=== PATIENT | female | born 1960 | race Caucasian/White ===

== ENCOUNTER 2019-05-08 21:42 | Inpatient (IN) | payer SELFPAY ==
--- OUTSIDE RECORDS SUMMARY | 2019-05-08 21:44 | XMS REPORT ---
:1960 Author Organization eClinicalWorks Care Team Providers Name Role Phone Errol Baires Provider Role Unavailable Allergies No Known Allergies Problems Problem Type Condition Code Onset Dates Condition Status Assessment Closed fracture of proximal end of S42.201A Active right humerus, unspecified fracture morphology, initial encounter Problem Mixed hyperlipidemia E78.2 Active Problem Paroxysmal supraventricular I47.1 Active tachycardia Problem H/O: CVA (cerebrovascular Z86.73 Active accident) Problem Adult BMI 39.0-39.9 kg/sq m Z68.39 Active Problem Gastroesophageal reflux disease K21.9 Active without esophagitis Problem Prediabetes R73.03 Active Problem Seasonal and perennial allergic J30.9 Active rhinitis Problem Migraine without aura, not G43.009 Active intractable, without status migrainosus Medications No Known Medications Results No Known Results Summary Purpose eClinicalWorks Submission
[2019-05-08] MEDS ORDERED: AZITHROMYCIN 500 MG INJ IVPB ONE (22:17)
[2019-05-08] MEDS ORDERED: NA CHLORIDE 0.9% 250 ML ONE (22:17)
[2019-05-08] MEDS ORDERED: ALBUTEROL 2.5 MG/3 ML NEB SOL ONE (22:17)
[2019-05-08] MEDS ORDERED: METHYLPREDNISOLONE 125 MG INJ ONE (22:17)
[2019-05-08] MEDS ORDERED: IPRATROPIUM BROM 0.5MG/2.5ML ONE (22:17)
[2019-05-08] MEDS ORDERED: CEFTRIAXONE/SWI 1gm 2 GM/20 ML SYR ONE (22:18)
--- NOTE | 2019-05-08 22:31 | ER ---
Nurse's Notes [facility] Name: Antonella Hwang Age: 58 yrs Sex: Female : 1960 Arrival Date: 05/08/2019 Time: 21:44 Bed 30 Private MD: Diagnosis: Dyspnea;Chronic obstructive pulmonary disease with (acute) exacerbation;Hypoxemia Presentation: 05/08 21:50 Presenting complaint: Patient states: that 2 weeks ago she had the flu but got better. fc Then today around 1700 she started to have cough with yellow sputum and has sinus congestion. Daughter checked her sats and pt was 88% on roomair. Transition of care: patient was not received from another setting of care. Onset of symptoms was May 08, 2019 at 17:00. Risk Assessment: Do you want to hurt yourself or someone else? Patient reports no desire to harm self or others. Initial Sepsis Screen: Does the patient meet any 2 criteria? No. Patient's initial sepsis screen is negative. Does the patient have a suspected source of infection? No. Patient's initial sepsis screen is negative. Care prior to arrival: Medication(s) given: Albuterol Neb x 1, at 2100. 21:50 Method Of Arrival: Ambulatory 21:50 Acuity: AFTAB 3 fc Historical: - Allergies: 22:07 HYDROCODONE; fc - Home Meds: 22:07 aspirin 81 mg Oral chew 1 tab once daily [Active]; metoprolol tartrate 50 mg Oral tab 1 fc tab 2 times per day [Active]; simvastatin 80 mg Oral tab nightly [Active]; - PMHx: 22:07 Anxiety; GERD; CVA; High Cholesterol; SVT; fc - PSHx: 22:07 ; fc - Immunization history:: Last tetanus immunization: up to date Flu vaccine is not up to date. - Social history:: Smoking status: Patient uses tobacco products, Vaps, Patient uses alcohol, occasionally. - Ebola Screening: : Patient negative for fever greater than or equal to 101.5 degrees Fahrenheit, and additional compatible Ebola Virus Disease symptoms Patient denies exposure to infectious person Patient denies travel to an Ebola-affected area in the 21 days before illness onset. - Family history:: not pertinent. Screenin:50 Abuse screen: Denies threats or abuse. Nutritional screening: No deficits noted. fc Tuberculosis screening: No symptoms or risk factors identified. Fall Risk None identified. Assessment: 22:51 General: Appears in no apparent distress. comfortable, Behavior is calm, cooperative, aj1 appropriate for age. Pain: Denies pain. Neuro: Level of Consciousness is awake, alert, obeys commands, Oriented to person, place, time, situation. Cardiovascular: Heart tones S1 S2 present Patient's skin is warm and dry. Rhythm is sinus rhythm. Respiratory: Reports shortness of breath at rest cough that is productive, Airway is patent Respiratory effort is even, unlabored, Respiratory pattern is regular, symmetrical, Breath sounds with wheezes bilaterally. the patient has moderate shortness of breath. 22:51 GI: No signs and/or symptoms were reported involving the gastrointestinal system. : aj1 No signs and/or symptoms were reported regarding the genitourinary system. EENT: No signs and/or symptoms were reported regarding the EENT system. Derm: No signs and/or symptoms reported regarding the dermatologic system. Skin is pink, warm \T\ dry. normal. Musculoskeletal: No signs and/or symptoms reported regarding the musculoskeletal system. Circulation, motion, and sensation intact. 23:55 Reassessment: Patient appears in no apparent distress at this time. No changes from aj1 previously documented assessment. Patient and/or family updated on plan of care and expected duration. Pain level reassessed. Patient is alert, oriented x 3, equal unlabored respirations, skin warm/dry/pink. 05/09 01:04 Reassessment: Patient appears in no apparent distress at this time. No changes from aj1 previously documented assessment. Patient and/or family updated on plan of care and expected duration. Pain level reassessed. Patient is alert, oriented x 3, equal unlabored respirations, skin warm/dry/pink. Vital Signs: 05/08 21:50 BP 140 / 92; Pulse 90; Resp 20; Temp 98.3(O); Pulse Ox 83% on R/A; Weight 95.25 kg (R); fc Height 5 ft. 7 in. (170.18 cm) (R); Pain 07/28; 21:55 Pulse Ox 90% on 3 lpm NC; fc 22:45 BP 120 / 69; Pulse 86; Resp 18; Pulse Ox 97% on 4 lpm NC; aj1 23:45 BP 114 / 73; Pulse 86; Resp 28; Pulse Ox 95% on 4 lpm NC; aj1 05/09 00:45 BP 116 / 72; Pulse 79; Resp 24; Pulse Ox 93% on 4 lpm NC; aj1 05/08 21:50 Body Mass Index 32.89 (95.25 kg, 170.18 cm) ED Course: 05/08 21:44 Patient arrived in ED. cl3 21:50 Arm band placed on Patient placed in an exam room, on a stretcher, on oxygen. fc 21:50 Patient has correct armband on for positive identification. Placed in gown. Bed in low fc position. Call light in reach. Side rails up X 1. threat monitoring analyst on. Pulse ox on. NIBP on. 21:50 No provider procedures requiring assistance completed. fc 21:53 Jono Sue MD is Attending Physician. sandy 21:57 Leonor Glez RN is Primary Nurse. aj1 22:03 Triage completed. fc 22:15 Inserted saline lock: 20 gauge in right antecubital area, using aseptic technique. aj1 Blood collected. 22:15 Initial lab(s) drawn, by tn, sent to lab. First set of blood cultures drawn by me. aj1 22:29 Sandra Beverly MD is Hospitalizing Provider. sandy 22:31 Inserted saline lock: 20 gauge in right wrist, using aseptic technique. aj1 22:31 Second set of blood cultures drawn by me. aj1 22:48 XRAY Chest (1 view) In Process Unspecified. EDMS 05/09 01:07 Patient admitted, IV remains in place. aj1 Administered Medications: 05/08 22:45 Drug: Albuterol - atroVENT (3:1) (2.5 mg - 0.5 mg) 3 ml Route: Nebulizer; aj1 05/09 01:09 Follow up: Response: No adverse reaction aj1 05/08 22:45 Drug: SOLU-Medrol 125 mg Route: IVP; Site: right wrist; aj1 05/09 01:10 Follow up: Response: No adverse reaction aj1 05/08 22:47 Drug: Rocephin 2 grams Route: IV; Rate: per protocol; Site: right forearm; aj1 22:50 Follow up: IV Status: Completed infusion; IV Intake: 10ml aj1 22:47 Drug: Zithromax 500 mg Route: IVPB; Infused Over: 1 hrs; Site: right forearm; aj1 23:50 Follow up: IV Status: Completed infusion; IV Intake: 250ml aj1 Intake: 22:50 IV: 10ml; Total: 10ml. aj1 23:50 IV: 250ml; Total: 260ml. aj1 Outcome: 22:30 Decision to Hospitalize by Provider. sandy 05/09 01:07 Admitted to Tele accompanied by tech, via wheelchair, with oxygen, with chart, Report aj1 called to AURELIO Peña Condition: stable Discharge instructions given to patient, family, Instructed on the need for admit, Demonstrated understanding of instructions. 01:10 Patient left the ED. aj1 Signatures: Dispatcher [employer] Leonor Virgen RN RN aj1 Jono Sue MD MD cha Chretien, Felicia, RN RN fc Lewis, Charde cl3 Corrections: (The following items were deleted from the chart) 05/08 22:09 21:50 BP 140 / 92; Pulse 90bpm; Resp 20bpm; Pulse Ox 83% RA; 95.25 kg Reported; Height fc 5 ft. 7 in. Reported; BMI: 32.8; Pain 2/10; fc 05/09 01:02 05/08 22:51 Respiratory: Airway is patent Respiratory effort is even, unlabored, aj1 Respiratory pattern is regular, symmetrical, aj1
--- NOTE | 2019-05-08 22:31 | EDPHYS ---
Physician Documentation [facility] Name: Antonella Hwang Age: 58 yrs Sex: Female : 1960 Arrival Date: 05/08/2019 Time: 21:44 Bed 30 Private MD: ED Physician Jono Sue HPI: 05/08 22:25 This 58 yrs old Female presents to ER via Ambulatory with complaints of sandy Shortness Of Breath. 22:25 The patient has shortness of breath at rest, with light activity. Onset: The sandy symptoms/episode began/occurred 2 day(s) ago. Duration: The symptoms are continuous, and are steadily getting worse. The patient's shortness of breath is aggravated by nothing, is alleviated by nothing. Associated signs and symptoms: The patient has no apparent associated signs or symptoms. Severity of symptoms: At their worst the symptoms were mild moderate in the emergency department the symptoms have resolved. The patient has not experienced similar symptoms in the past. Historical: - Allergies: 22:07 HYDROCODONE; fc - Home Meds: 22:07 aspirin 81 mg Oral chew 1 tab once daily [Active]; metoprolol tartrate 50 mg Oral tab 1 fc tab 2 times per day [Active]; simvastatin 80 mg Oral tab nightly [Active]; - PMHx: 22:07 Anxiety; GERD; CVA; High Cholesterol; SVT; fc - PSHx: 22:07 ; fc - Immunization history:: Last tetanus immunization: up to date Flu vaccine is not up to date. - Social history:: Smoking status: Patient uses tobacco products, Vaps, Patient uses alcohol, occasionally. - Ebola Screening: : Patient negative for fever greater than or equal to 101.5 degrees Fahrenheit, and additional compatible Ebola Virus Disease symptoms Patient denies exposure to infectious person Patient denies travel to an Ebola-affected area in the 21 days before illness onset. - Family history:: not pertinent. ROS: 22:25 Constitutional: Negative for fever, chills, and weight loss, Eyes: Negative for injury, sandy pain, redness, and discharge, ENT: Negative for injury, pain, and discharge, Neck: Negative for injury, pain, and swelling, Cardiovascular: Negative for chest pain, palpitations, and edema, Abdomen/GI: Negative for abdominal pain, nausea, vomiting, diarrhea, and constipation, Back: Negative for injury and pain, : Negative for injury, bleeding, discharge, and swelling, MS/Extremity: Negative for injury and deformity, Skin: Negative for injury, rash, and discoloration, Neuro: Negative for headache, weakness, numbness, tingling, and seizure, Psych: Negative for depression, anxiety, suicide ideation, homicidal ideation, and hallucinations, Allergy/Immunology: Negative for hives, rash, and allergies, Endocrine: Negative for neck swelling, polydipsia, polyuria, polyphagia, and marked weight changes, Hematologic/Lymphatic: Negative for swollen nodes, abnormal bleeding, and unusual bruising. 22:25 Respiratory: Positive for cough, shortness of breath, at rest. wheezing, inspiratory, expiratory. Exam: 22:27 Constitutional: This is a well developed, well nourished patient who is awake, alert, sandy and in no acute distress. Head/Face: Normocephalic, atraumatic. Eyes: Pupils equal round and reactive to light, extra-ocular motions intact. Lids and lashes normal. Conjunctiva and sclera are non-icteric and not injected. Cornea within normal limits. Periorbital areas with no swelling, redness, or edema. ENT: Nares patent. No nasal discharge, no septal abnormalities noted. Tympanic membranes are normal and external auditory canals are clear. Oropharynx with no redness, swelling, or masses, exudates, or evidence of obstruction, uvula midline. Mucous membranes moist. Neck: Trachea midline, no thyromegaly or masses palpated, and no cervical lymphadenopathy. Supple, full range of motion without nuchal rigidity, or vertebral point tenderness. No Meningismus. Chest/axilla: Normal chest wall appearance and motion. Nontender with no deformity. No lesions are appreciated. Cardiovascular: Regular rate and rhythm with a normal S1 and S2. No gallops, murmurs, or rubs. Normal PMI, no JVD. No pulse deficits. Abdomen/GI: Soft, non-tender, with normal bowel sounds. No distension or tympany. No guarding or rebound. No evidence of tenderness throughout. Back: No spinal tenderness. No costovertebral tenderness. Full range of motion. Skin: Warm, dry with normal turgor. Normal color with no rashes, no lesions, and no evidence of cellulitis. MS/ Extremity: Pulses equal, no cyanosis. Neurovascular intact. Full, normal range of motion. Neuro: Awake and alert, GCS 15, oriented to person, place, time, and situation. Cranial nerves II-XII grossly intact. Motor strength 5/5 in all extremities. Sensory grossly intact. Cerebellar exam normal. Normal gait. Psych: Awake, alert, with orientation to person, place and time. Behavior, mood, and affect are within normal limits. 22:27 Respiratory: mild respiratory distress is noted, moderate respiratory distress is noted, Respirations: no acute changes, labored breathing, is not present, Breath sounds: bronchial sounds, that are mild, decreased breath sounds, that are mild, wheezing: expiratory Respiratory rate: 20 Vital Signs: 21:50 BP 140 / 92; Pulse 90; Resp 20; Temp 98.3(O); Pulse Ox 83% on R/A; Weight 95.25 kg (R); fc Height 5 ft. 7 in. (170.18 cm) (R); Pain 2/10; 21:55 Pulse Ox 90% on 3 lpm NC; 22:45 BP 120 / 69; Pulse 86; Resp 18; Pulse Ox 97% on 4 lpm NC; [facility] 23:45 BP 114 / 73; Pulse 86; Resp 28; Pulse Ox 95% on 4 lpm NC; [facility] 05/09 00:45 BP 116 / 72; Pulse 79; Resp 24; Pulse Ox 93% on 4 lpm NC; [facility] 05/08 21:50 Body Mass Index 32.89 (95.25 kg, 170.18 cm) MDM: 05/08 21:53 Patient medically screened. [facility] 22:28 Data reviewed: vital signs, nurses notes, lab test result(s), EKG, radiologic studies, [facility] plain films. 05/08 22:04 Order name: Basic Metabolic Panel [facility] 05/08 22:04 Order name: CBC with Diff; Complete Time: 00:38 [facility] 05/08 22:04 Order name: LFT's [facility] 05/08 22:04 Order name: Magnesium [facility] 05/08 22:04 Order name: NT PRO-BNP [facility] 05/08 22:04 Order name: PT-INR; Complete Time: 00:38 [facility] 05/08 22:04 Order name: Troponin (emerg Dept Use Only) [facility] 05/08 22:04 Order name: Influenza Screen (a \T\ B); Complete Time: 00:38 [facility] 05/08 22:04 Order name: Blood Culture Adult (2) [facility] 05/08 22:04 Order name: Procalcitonin; Complete Time: 00:38 [facility] 05/08 22:04 Order name: Urine Culture [facility] 05/08 22:13 Order name: Lactate [facility] 05/08 22:14 Order name: Lactate aj 05/08 23:36 Order name: CBC with Automated Diff [facility] 05/08 22:04 Order name: XRAY Chest (1 view) [facility] 05/08 23:36 Order name: CBC with Automated Diff [facility] 05/08 23:36 Order name: Comprehensive Metabolic Panel [facility] 05/08 23:36 Order name: Comprehensive Metabolic Panel [facility] 05/08 23:36 Order name: Lactate [facility] 05/08 23:36 Order name: Lactate [facility] 05/08 23:36 Order name: Magnesium [facility] 05/08 23:36 Order name: Magnesium [facility] 05/08 23:36 Order name: Phosphorus [facility] 05/08 23:36 Order name: Phosphorus [facility] 05/08 23:36 Order name: NT PRO-BNP [facility] 05/08 23:36 Order name: NT PRO-BNP [facility] 05/08 23:36 Order name: Troponin I [facility] 05/08 23:36 Order name: Troponin I [facility] 05/08 23:38 Order name: Urinalysis [facility] 05/08 22:04 Order name: EKG; Complete Time: 22:06 [facility] 05/08 22:04 Order name: Cardiac monitoring; Complete Time: 00:11 [facility] 05/08 22:04 Order name: EKG - Nurse/Tech; Complete Time: 00:11 [facility] 05/08 22:04 Order name: IV Saline Lock; Complete Time: 00:11 [facility] 05/08 22:04 Order name: Labs collected and sent; Complete Time: 00:11 [facility] 05/08 22:04 Order name: O2 Per Protocol; Complete Time: 00:12 [facility] 05/08 22:04 Order name: O2 Sat Monitoring; Complete Time: 00:12 [facility] 05/08 23:36 Order name: CONS Physician Consult [facility] 05/08 23:36 Order name: Regular EDMS Administered Medications: 22:45 Drug: Albuterol - atroVENT (3:1) (2.5 mg - 0.5 mg) 3 ml Route: Nebulizer; [facility] 05/09 01:09 Follow up: Response: No adverse reaction [facility] 05/08 22:45 Drug: SOLU-Medrol 125 mg Route: IVP; Site: right wrist; [facility] 05/09 01:10 Follow up: Response: No adverse reaction [facility] 05/08 22:47 Drug: Rocephin 2 grams Route: IV; Rate: per protocol; Site: right forearm; aj 22:50 Follow up: IV Status: Completed infusion; IV Intake: 10ml 22:47 Drug: Zithromax 500 mg Route: IVPB; Infused Over: 1 hrs; Site: right forearm; aj 23:50 Follow up: IV Status: Completed infusion; IV Intake: 250ml [facility] Disposition: 05/08/19 22:30 Hospitalization ordered by Sandra Beverly for Inpatient Admission. Preliminary diagnosis are Dyspnea, Chronic obstructive pulmonary disease with (acute) exacerbation, Hypoxemia. - Bed requested for Telemetry/MedSurg (Inpatient). - Status is Inpatient Admission. [facility] - Condition is Fair. - Problem is new. - Symptoms have improved. UTI on Admission? No Signatures: Dispatcher [employer] EDLeonor Little RN RN [facility] Jono Sue MD MD cha Chretien, Felicia, RN RN Cherise Grigsby RN RN Corrections: (The following items were deleted from the chart) 23:47 22:30 Hospitalization Ordered by Sandra Beverly MD for Inpatient Admission. Preliminary cg diagnosis is Dyspnea; Chronic obstructive pulmonary disease with (acute) exacerbation; Hypoxemia. Bed requested for Telemetry/MedSurg (Inpatient). Status is Inpatient Admission. Condition is Fair. Problem is new. Symptoms have improved. UTI on Admission? No. sandy 23:48 23:47 05/08/2019 22:30 Hospitalization Ordered by Sandra Beverly MD for Inpatient Admission. Preliminary diagnosis is Dyspnea; Chronic obstructive pulmonary disease with (acute) exacerbation; Hypoxemia. Bed requested for Telemetry/MedSurg (Inpatient). Status is Inpatient Admission. Condition is Fair. Problem is new. Symptoms have improved. UTI on Admission? No. cg 05/09 01:10 05/08 23:48 05/08/2019 22:30 Hospitalization Ordered by Sandra Beverly MD for Inpatient aj1 Admission. Preliminary diagnosis is Dyspnea; Chronic obstructive pulmonary disease with (acute) exacerbation; Hypoxemia. Bed requested for Telemetry/MedSurg (Inpatient). Status is Inpatient Admission. Condition is Fair. Problem is new. Symptoms have improved. UTI on Admission? No. cg
[2019-05-08 22:56] LABS: Absolute Lymphocytes (CBC) 3.5 K/uL (0.7-4.9); Hematocrit 40.8 % (36.0-45.0); Lymphocytes % 39.5 % (15.3-44.8); MPV 9.4 fL (7.6-11.3); RBC Red Blood Cell Count 4.53 M/uL (3.86-4.86)
[2019-05-08 22:59] LABS: Protime INR 0.98
[2019-05-08 23:15] LABS: ALT/SGPT 20 U/L (12-78); AST/SGOT 17 U/L (15-37); Albumin 3.5 g/dL (3.4-5.0); Alkaline Phosphatase 72 U/L (45-117); BUN Blood Urea Nitrogen 20 mg/dL (7-18); Bicarbonate 28 mmol/L (21-32); Bilirubin Direct 0.1 mg/dL (0-0.2); Bilirubin Total 0.3 mg/dL (0.2-1.0); Glucose Level 101 mg/dL (74-106); Magnesium 1.9 mg/dL (1.8-2.4); NT PRO-BNP 28 pg/mL (<125); Potassium 3.5 mmol/L (3.5-5.1); Protein, Total 7.9 g/dL (6.4-8.2); Sodium Level 139 mmol/L (136-145); Troponin (Emerg Dept Use Only) < 0.02 ng/mL (0.0-0.045)
[2019-05-08] MEDS ORDERED: ONDANSETRON 4 MG/2 ML VIAL IV PRN (23:32)
[2019-05-08] MEDS ORDERED: ACETAMINOPHEN 500 MG TAB PO PRN (23:32)
[2019-05-09 01:17] VITALS: BMI 38.9
[2019-05-09] MEDS: NA CHLORIDE 0.9% 1,000 ML IV SCH (01:42)
[2019-05-09] MEDS: Levofloxacin500mg IV 500 MG/100 ML BAG IV SCH ×2 (01:43→22:10)
[2019-05-09] MEDS: IPRATROPIUM BROM 0.5MG/2.5ML NEB SCH ×4 (02:00→19:40)
[2019-05-09] MEDS: ALBUTEROL 2.5 MG/3 ML NEB SOL NEB SCH ×4 (02:00→19:40)
[2019-05-09 02:07] LABS: Urine Appearance CLEAR; Urine Bilirubin NEGATIVE (NEG); Urine Blood NEGATIVE (NEG); Urine Color YELLOW; Urine Glucose NEGATIVE (NEG); Urine Protein NEGATIVE (NEG); Urine Urobilinogen 0.2 mg/dL (0.2-1.0); Urine pH 5.5 (5.0-7.0)
[2019-05-09 02:15] LABS: Urine Microscopic Reflex NO UMIC
[2019-05-09] MEDS: METHYLPREDNISOLONE 125 MG INJ IV SCH ×4 (04:02→22:11)
[2019-05-09 04:29] LABS: Basophils % 0.2 % (0-1.3); Hematocrit 40.6 % (36.0-45.0); Lymphocytes % 13.7 % (15.3-44.8); MPV 8.7 fL (7.6-11.3); RBC Red Blood Cell Count 4.43 M/uL (3.86-4.86)
[2019-05-09 04:43] LABS: Albumin 3.4 g/dL (3.4-5.0); Bilirubin Total 0.2 mg/dL (0.2-1.0); Magnesium 1.9 mg/dL (1.8-2.4); Phosphorus 3.3 mg/dL (2.5-4.9); Protein, Total 7.9 g/dL (6.4-8.2)
[2019-05-09] MEDS: ENOXAPARIN 40 MG/0.4 ML SQ SCH (08:03)
--- NOTE | 2019-05-09 08:25 | RAD REPORT ---
EXAM DESCRIPTION: Florencia Single View05/08/2019 10:47 pm CLINICAL HISTORY: Cough COMPARISON: 2017 FINDINGS: Mild prominence of the interstitial lung pattern bilaterally without significant change The heart is normal size IMPRESSION: Mild prominence interstitial pattern bilaterally without significant change presumably c hronic. A mild superimposed process such as pneumonitis/atypical pneumonia could also be present.
--- NOTE | 2019-05-09 11:15 | P.CNS ---
Date of Consult: 05/16/19 Reason for Consult: Shortness of breath Chief Complaint: Shortness of breath History of Present Illness: Patient is 58-year-old very pleasant lady who quit smoking 5 years ago former heavy smoker admitted with acute onset of shortness of breath denies any cough sputum hemoptysis fever or chills no prior history of cardiopulmonary disorders feels fine now denies any chest pain Allergies hydrocodone Allergy (Severe, Verified 11/24/16 22:02) Itching Home Medications: Aspirin 81 mg PO DAILY 11/24/16 Metoprolol Succinate [Toprol Xl] 50 mg PO BID 05/09/19 Simvastatin [Zocor] 1 tab PO BEDTIME 05/09/19 - Past Medical/Surgical History Diabetic: No -: Anxiety -: CVA-2005 -: GERD -: SVT -: HLD -: CS - Family History Father Medical History: Cancer Notes: Liver cancer Mother Medical History: Diabetes Notes: none Brother Medical History: Heart disease, Cancer Notes: Lung cancer Sister Medical History: Cancer Notes: uterine cancer and breast cancer - Social History Smoking Status: Current every day smoker Alcohol use: Yes CD- Drugs: No Caffeine use: No Place of Residence: Home Review of Systems 10-point ROS is otherwise unremarkable Physical Examination Temp Pulse Resp BP Pulse Ox 97.0 F 87 18 106/57 L 95 05/09/19 08:00 05/09/19 08:00 05/09/19 08:00 05/09/19 08:00 05/09/19 08:00 General: Alert, Oriented x3, Cachectic Neck: Supple Respiratory: Clear to auscultation bilaterally Cardiovascular: No edema, Regular rate/rhythm, Normal S1 S2 Gastrointestinal: Normal bowel sounds, Soft and benign Laboratory Data (last 24 hrs) 05/08/19 22:15: Sodium 139, Potassium 3.5, BUN 20 H, Creatinine 0.91, Glucose 101, Magnesium 1.9, Total Bilirubin 0.3, AST 17, ALT 20, Alkaline Phosphatase 72 05/08/19 10:15: PT 11.6, INR 0.98 05/08/19 10:15: WBC 8.9, Hgb 14.1, Hct 40.8, Plt Count 224 - Problems (1) Shortness of breath Current Visit: Yes Status: Acute Plan: Patient is 58 years of age admitted with acute onset of shortness of breath former heavy smoker possibly underlying obstructive airways disease she is currently feeling better labs reviewed unremarkable chest x-ray does show some interstitial changes there is no evidence of sepsis check room air pulse ox repeat chest x-ray PA and lateral including an echocardiogram in Dc antibiotics discharge follow up with me in 1 or 2 weeks BNP is normal
--- NOTE | 2019-05-09 11:57 | EKG ---
Test Date: 2019-05-08 Test Time: 23:56:38 Roll Trucker: BLAINE MEASUREMENT RESULTS: Intervals: Rate: 80 WI: 150 QRSD: 84 QT: 394 QTc: 454 Sikes: P: 69 WI: 150 QRS: 25 T: 19 INTERPRETIVE STATEMENTS: Normal sinus rhythm Nonspecific ST abnormality Abnormal ECG Compared to ECG 11/25/2016 06:45:20 Prolonged QT interval no longer present ST (T wave) deviation still present Electronically Signed On 05-09-19 11:56:38 DIRECTOR WEIGHTS AND MEASURES by Norman Hernandez
--- NOTE | 2019-05-09 14:24 | RAD REPORT ---
EXAM DESCRIPTION: Florencia Pa And Lat (2 Views)05/09/2019 2:17 pm CLINICAL HISTORY: Shortness of breath COMPARISON: May 08, 2019 FINDINGS: Reticular lung opacities appear mildly more prominent in the lung bases. Additional bilateral interstitial opacities appear unchanged The heart is normal size IMPRESSION: Appears to be mild progression in reticular opacities within the lung bases which may in dicate pneumonitis or atypical pneumonia
--- NOTE | 2019-05-09 15:58 | P.HP ---
Certification for Inpatient Patient admitted to: Inpatient With expected LOS: >2 Midnights Patient will require the following post-hospital care: None Practitioner: I am a practitioner with admitting privileges, knowledge of patient current condition, hospital course, and medical plan of care. Services: Services provided to patient in accordance with Admission requirements found in Title 42 Section 412.3 of the Code of Federal Regulations Patient History Date of Service: 05/08/19 Reason for admission: Shortness of breath History of Present Illness: patient is a 58-year-old female who comes into the hospital with difficulty breathing. Patient has been having some difficulty with respirations for the last few years. She quit smoking about 5 years ago. At that time she was seen in the hospital and it was felt she may need oxygen. However her oxygen saturations recovered and she did not need to go home with oxygen. Patient a couple weeks ago got the flu. Her grandson had the flu and she developed similar symptoms. She did recover but over the last couple of days she has been short of breath. She has been doing some woodworking paining around the house which she grew up doing. This may have exacerbated her respiratory status. She will be admitted to the hospital for a COPD exacerbation. Allergies hydrocodone Allergy (Severe, Verified 11/24/16 22:02) Itching Home Medications: Aspirin 81 mg PO DAILY 11/24/16 Metoprolol Succinate [Toprol Xl] 50 mg PO BID 05/09/19 Simvastatin [Zocor] 1 tab PO BEDTIME 05/09/19 - Past Medical/Surgical History Has patient received pneumonia vaccine in the past: No Diabetic: No -: Anxiety -: CVA-2004 -: GERD -: SVT -: HLD -: CS - Family History Father Medical History: Cancer Notes: Liver cancer Mother Medical History: Diabetes Notes: none Brother Medical History: Heart disease, Cancer Notes: Lung cancer Sister Medical History: Cancer Notes: uterine cancer and breast cancer - Social History Smoking Status: Former smoker Alcohol use: Yes CD- Drugs: No Caffeine use: No Place of Residence: Home Review of Systems 10-point ROS is otherwise unremarkable Physical Examination - Vital Signs Temperature: 97.1 F Blood Pressure: 110/61 Pulse: 79 Respirations: 18 Pulse Ox (%): 93 - Physical Exam General: Alert, In no apparent distress, Oriented x3 HEENT: Atraumatic, PERRLA, Mucous membr. moist/pink, EOMI, Sclerae nonicteric Neck: Supple, 2+ carotid pulse no bruit, No LAD, Without JVD or thyroid abnormality Respiratory: Diminished, Expiratory wheezes Cardiovascular: Regular rate/rhythm, Normal S1 S2, No murmurs Gastrointestinal: Normal bowel sounds, Soft and benign, Non-distended, No tenderness Musculoskeletal: No clubbing, No swelling, No tenderness Integumentary: No rashes Neurological: Normal gait, Normal speech, Normal strength at 5/5 x4 extr, Normal tone, Sensation intact, Cranial nerves 3-12 intact, Normal affect Lymphatics: No axilla or inguinal lymphadenopathy - Studies Laboratory Data (last 24 hrs) 05/08/19 22:15: Sodium 139, Potassium 3.5, BUN 20 H, Creatinine 0.91, Glucose 101, Magnesium 1.9, Total Bilirubin 0.3, AST 17, ALT 20, Alkaline Phosphatase 72 05/08/19 10:15: PT 11.6, INR 0.98 05/08/19 10:15: WBC 8.9, Hgb 14.1, Hct 40.8, Plt Count 224 Microbiology Data (last 24 hrs): 05/08/19 23:15 Nasopharnyx Influenza Type A Antigen Screen - Final 05/08/19 23:15 Nasopharnyx Influenza Type B Antigen Screen - Final Assessment & Plan - Problems (Diagnosis) (1) H/O supraventricular tachycardia Current Visit: Yes Status: Acute (2) COPD with exacerbation Current Visit: Yes Status: Acute (3) Shortness of breath Current Visit: Yes Status: Acute (4) Hypoxemia Current Visit: Yes Status: Acute - Plan Plan: 1. Continue with IV antibiotics 2. Check RA O2 sats 3. Repeat chest x-ray in AM 4. Will order CT scan of the chest 5. Counselled re: meds to use for COPD 6. Continue with nebs as needed 7. O2 per protocol 8. Continue with gentle hydration 9. Repeat labs including CBC and renal function in a.m. 10. Outpt follow-up with Pulmonary 11. GI and DVT prophylaxis Discharge Plan: Home Plan to discharge in: Greater than 2 days - Advance Directives Does patient have a Living Will: No Does patient have a Durable POA for Healthcare: No - Code Status/Comfort Care Code Status Assessed: Yes Code Status: Full Code Critical Care: No Time Spent Managing PTS Care (In Minutes): 45
[2019-05-09] MEDS ORDERED: ATORVASTATIN 40 MG TAB PO SCH (21:00)
[2019-05-09] MEDS ORDERED: SIMVASTATIN PO SCH (21:00)
[2019-05-09] MEDS: METOPROLOL XL 50 MG TAB PO SCH (22:10)
[2019-05-10] MEDS: IPRATROPIUM BROM 0.5MG/2.5ML NEB SCH ×2 (01:05→07:21)
[2019-05-10] MEDS: ALBUTEROL 2.5 MG/3 ML NEB SOL NEB SCH ×2 (01:05→07:21)
[2019-05-10] MEDS: METHYLPREDNISOLONE 125 MG INJ IV SCH ×2 (05:45→09:06)
[2019-05-10] MEDS: NA CHLORIDE 0.9% 1,000 ML IV SCH (05:50)
[2019-05-10 08:58] VITALS: O2SAT 90
[2019-05-10] MEDS ORDERED: ASPIRIN 81 MG CHEWABLE TABLET PO SCH (09:00)
[2019-05-10] MEDS: ENOXAPARIN 40 MG/0.4 ML SQ SCH (09:04)
[2019-05-10] MEDS: METOPROLOL XL 50 MG TAB PO SCH (09:04)
--- NOTE | 2019-05-10 10:01 | P.PN ---
Subjective Date of Service: 05/09/19 Patient is clinically improving. Will get her off of oxygen and see how she does on room air today. Pulmonary consultation pending as well. Review of Systems 10-point ROS is otherwise unremarkable Physical Examination - Vital Signs Temperature: 98.0 F Blood Pressure: 135/64 Pulse: 82 Respirations: 18 Pulse Ox (%): 92 - Physical Exam General: Alert, In no apparent distress, Oriented x3 Respiratory: Normal air movement, Expiratory wheezes Cardiovascular: Regular rate/rhythm, Normal S1 S2 Gastrointestinal: Normal bowel sounds, Soft and benign, Non-distended, No tenderness Musculoskeletal: No clubbing, No swelling, No tenderness Neurological: Normal speech, Normal strength at 5/5 x4 extr, Normal tone, Sensation intact, Cranial nerves 3-12 intact, Normal affect - Studies Medications List Reviewed: Yes Assessment & Plan - Problems (Diagnosis) (1) Shortness of breath Current Visit: Yes Status: Acute (2) COPD with exacerbation Current Visit: Yes Status: Acute (3) H/O supraventricular tachycardia Current Visit: Yes Status: Acute (4) Hypoxemia Current Visit: Yes Status: Acute - Plan Plan: Continue with plan of care as mentioned below 1. Continue with IV antibiotics 2. Check RA O2 sats 3. Repeat chest x-ray in AM 4. Arrange for home meds-patient is uninsured so will have to make sure these are affordable 5. Counselled re: meds to use for COPD 6. Continue with nebs as needed 7. O2 per protocol 8. Continue with gentle hydration 9. Repeat labs including CBC and renal function in a.m. 10. Outpt follow-up with Pulmonary 11. GI and DVT prophylaxis Discharge Plan: Home Plan to discharge in: 24 Hours - Advance Directives Does patient have a Living Will: No Does patient have a Durable POA for Healthcare: No - Code Status/Comfort Care Code Status: Full Code Critical Care: No Time Spent Managing PTS Care (In Minutes): 30
--- NOTE | 2019-05-10 10:03 | P.DS ---
Discharge Date: 05/10/19 Disposition: ROUTINE DISCHARGE Discharge Condition: GOOD Reason for Admission: Shortness of breath Consultations: Pulmonary - Problems (1) Shortness of breath Current Visit: Yes Status: Acute (2) COPD with exacerbation Current Visit: Yes Status: Acute (3) H/O supraventricular tachycardia Current Visit: Yes Status: Acute (4) Hypoxemia Current Visit: Yes Status: Acute Brief History of Present Illness: patient is a 58-year-old female who comes into the hospital with difficulty breathing. Patient has been having some difficulty with respirations for the last few years. She quit smoking about 5 years ago. At that time she was seen in the hospital and it was felt she may need oxygen. However her oxygen saturations recovered and she did not need to go home with oxygen. Patient a couple weeks ago got the flu. Her grandson had the flu and she developed similar symptoms. She did recover but over the last couple of days she has been short of breath. She has been doing some woodworking paining around the house which she grew up doing. This may have exacerbated her respiratory status. She will be admitted to the hospital for a COPD exacerbation. Hospital Course: Patient is done well. On room air oxygen her O2 sats are 95%. Patient is stable for discharge on steroids and antibiotic therapy. Vital Signs/Physical Exam: Temp Pulse Resp BP Pulse Ox 98.0 F 82 18 135/64 92 05/10/19 10:01 05/10/19 10:01 05/10/19 10:01 05/10/19 10:01 05/10/19 10:01 General: Alert, In no apparent distress, Oriented x3 Laboratory Data at Discharge: WBC 7.2 K/uL (4.3-10.9) D 05/09/19 04:16 Hgb 13.5 g/dL (12.0-15.0) 05/09/19 04:16 Hct 40.6 % (36.0-45.0) 05/09/19 04:16 Plt Count 212 K/uL (152-406) 05/09/19 04:16 PT 11.6 SECONDS (9.5-12.5) 05/08/19 10:15 INR 0.98 05/08/19 10:15 Sodium 139 mmol/L (136-145) 05/09/19 04:16 Potassium 4.0 mmol/L (3.5-5.1) 05/09/19 04:16 BUN 19 mg/dL (7-18) H 05/09/19 04:16 Creatinine 1.12 mg/dL (0.55-1.3) 05/09/19 04:16 Glucose 160 mg/dL (74-106) H 05/09/19 04:16 Phosphorus 3.3 mg/dL (2.5-4.9) 05/09/19 04:16 Magnesium 1.9 mg/dL (1.8-2.4) 05/09/19 04:16 Total Bilirubin 0.2 mg/dL (0.2-1.0) 05/09/19 04:16 AST 15 U/L (15-37) 05/09/19 04:16 ALT 18 U/L (12-78) 05/09/19 04:16 Alkaline Phosphatase 65 U/L (45-117) 05/09/19 04:16 Troponin I < 0.02 ng/mL (0.0-0.045) 05/09/19 04:16 Home Medications: Aspirin 81 mg PO DAILY 11/24/16 Metoprolol Succinate [Toprol Xl] 50 mg PO BID 05/09/19 Simvastatin [Zocor] 1 tab PO BEDTIME 05/09/19 Patient Discharge Instructions: OK TO DC IV AND DC HOME. FOLLOW-UP WITH PRIMARY CARE PROVIDER IN 1-2 WEEKS. FOLLOW-UP WITH CARDIOLOGY IN 1-2 WEEKS. RETURN TO THE ER IF SYMPTOMS WORSENS. CALL or TEXT DR. TOWNSEND AT [phone] IF ANY QUESTIONS REGARDING HOSPITAL STAY. PLEASE CALL THE FLOOR AT [phone] IF ANY MEDICATION OR NURSING QUESTIONS. Diet: Regular Activity: Fall precautions Time spent managing pt's care (in minutes): 30
[2019-05-10 12:28] VITALS: BP 124/61; TEMP 97.7
--- NOTE | 2019-05-12 08:08 | ECHO ---
HEIGHT: 5 ft 7 in WEIGHT: 248 lb 11.2 oz DATE OF STUDY: 05/09/[address]: Brigido Wright MD 2-DIMENSIONAL: YES M.MODE: YES DOPPLER: YES COLOR FLOW: YES TDS: NO PORTABLE: NO DEFINITY: NO BUBBLE STUDY: NO DIAGNOSIS: SHORTNESS OF BREATH CARDIAC HISTORY: CATHERIZATION: NO SURGERY: NO PROSTHETIC VALVE: NO PACEMAKER: NO MEASUREMENTS (cm) DIASTOLIC (NORMALS) SYSTOLIC (NORMALS) IVSd 1.0 (0.6-1.2) LA Diam 2.8 (1.9-4.0) LVEF 66% LVIDd 4.5 (3.5-5.7) LVIDs 2.9 (2.0-3.5) %FS 36% LVPWd 1.0 (0.6-1.2) Ao Diam 2.2 (2.0-3.7) 2 DIMENSIONAL ASSESSMENT: RIGHT ATRIUM: NORMAL LEFT ATRIUM: NORMAL RIGHT VENTRICLE: NORMAL LEFT VENTRICLE: NORMAL TRICUSPID VALVE: NORMAL MITRAL VALVE: NORMAL PULMONIC VALVE: NORMAL AORTIC VALVE: NORMAL PERICARDIAL EFFUSION: NONE AORTIC ROOT: NORMAL LEFT VENTRICULAR WALL MOTION: NORMAL DOPPLER/COLOR FLOW: TRACE MITRAL AND TRICUSPID REGURGITATION. COMMENTS: NORMAL 2D ECHOCARDIOGRAM. TRACE MITRAL AND TRICUSPID REGURGITATION. NORMAL LEFT VENTRICULAR SIZE AND FUNCTION. NO WALL MOTION ABNORMALITY. NO EFFUSION. TECHNOLOGIST: Mckay BLUE
== END 2019-05-10 13:47 | disposition home or self-care (01) | DRG 191 ==
LOC: ER 21:42 → ERHOLD 23:54 → 4TH 05-09 00:31
PROVIDERS: ADMIT Internal Medicine; ATTEND Hospitalist
DX: J44.1 Chronic obstructive pulmonary disease with (acute) exacerbation (principal); I47.1 Supraventricular tachycardia; R09.02 Hypoxemia; Z87.891 Personal history of nicotine dependence; Z86.73 Personal history of transient ischemic attack (TIA), and cerebral infarction without residual deficits
CPT/HCPCS: 36415; 71045; 71046; 80048; 80053; 80076; 81003; 83605; 83735; 83880; 84100; 84145; 84484; 85025; 85610; 87040; 87804; 93005; 93306; 94640; 96365; 96375; 99285; J0456; J0696; J1650; J2930; J7030

== ENCOUNTER 2023-10-11 09:31 | Observation (INO) | payer OTHER, SELFPAY ==
--- OUTSIDE RECORDS SUMMARY | 2023-10-11 09:34 | XMS REPORT | Continuity of Care Document ---
Author Name Unknown Address [address] [facility] [address] [place] [address] [facility] Address [address] [facility] [address] [place] [address] Care Team Providers Care Rough Rounder Machine Name Role Phone Zulma Leary Attending Clinician Unavailable Irene Cummins Attending Clinician Unavailable Pramarycarmen_S Attending Clinician Unavailable Javier Garcia Admitting Clinician Unavailable Tay_S Admitting Clinician Unavailable Payers Payer Name Policy Type Policy Number Effective Date Expirati on Date Source DARS [id number] Problems Condition Name Condition Details Condition Category Status Onset Date Resolution Date Last Treatment Date Treating Clinician Comments Source Dyspnea Dyspnea Problem Active 824 00:00: 00 [facility] [id number] Prediabete s Problem Active [facility] [id number] Mixed hyperlipid emia Problem Active [facility] Gastroesop hageal reflux disease without esophagiti s Gastroesop hageal reflux disease without esophagiti s Problem Active [facility] [id number] Adult BMI 39.0-39.9 kg/sq m Problem Active [facility] [id number] Chronic obstructiv e pulmonary disease, unspecifie d COPD type Problem Active [facility] Migraine without aura, not refractory Migraine without aura, not intractabl e, without status migrainosu s Problem Active [facility] Allergic rhinitis Seasonal and perennial allergic rhinitis Problem Active [facility] History of cerebrovas cular accident without residual deficits H/O: CVA (cerebrova scular accident) Problem Active [facility] Paroxysmal supraventr icular tachycardi a Paroxysmal supraventr icular tachycardi a Problem Active [facility] [id number] Atrial fibrillati on with RVR Problem Active [facility] Allergies, Adverse Reactions, Alerts Allergy Name Allergy Type Status Severity Reaction(s) Onset Date Inactive Date Treating Clinician Comments Source hydrocod one DA Active SV HIVES 10-15 00:00: 00 [facility] Hydrocod one Allergy to substanc e Active Itching [facility] acetamin ophen / hydrocod one acetamin ophen / hydrocod one Active itching [facility] Social History Social Habit Start Date Stop Date Quantity Comments Source Sex Assigned At [facility] History of Tobacco Use [facility] Smoking Status Start Date Stop Date Source Former Smoker [facility] Never Smoker [facility] Medications Ordered Medication Name Filled Medication Name Start Date Stop Date Current Medication? Ordering Clinician Indication Dosage Frequency Signature (SIG) Comments Components Source Spiriva HandiHaler 18 MCG Spiriva HandiHaler 18 MCG 2019-06 00:00: 00 No QD Spiriva HandiHaler 18 MCG Eliquis 5 MG Eliquis 5 MG 2019-06 00:00: 00 No Eliquis 5 MG Amiodarone HCl 400 MG Amiodarone HCl 400 MG 2019-06 00:00: 00 No 1{table t} QD Amiodarone HCl 400 MG Metoprolol Succinate ER Metoprolol Succinate ER Yes Zulma Leary 1 tablet [facility] Simvastatin Simvastatin Yes Zulma Leary 1 tablet in the evening [facility] Famotidine Famotidine Yes Zulma Leary 1 tablet at bedtime [facility] Claritin Claritin Yes Zulma Leary 1 tablet [facility] Albuterol Sulfate HFA Albuterol Sulfate HFA Yes Zulma Leary 1 puff as needed [facility] Aspirin Adult Low Dose Aspirin Adult Low Dose Yes Zulma Leary 1 tablet [facility] Metoprolol Succinate ER Metoprolol Succinate ER Yes Zulma Leary TAKE 1 TABLET BY MOUTH TWICE DAILY FOR 90 DAYS [facility] Simvastatin Simvastatin Yes Zulma Leary TAKE 1 TABLET BY MOUTH ONCE DAILY IN THE EVENING FOR 90 DAYS [facility] Aspirin Adult Low Dose 81 MG Aspirin Adult Low Dose 81 MG No 1{table t} QD Aspirin Adult Low Dose 81 MG Albuterol Sulfate HFA 108 (90 Base) MCG/ACT Albuterol Sulfate HFA 108 (90 Base) MCG/ACT No 1{puff_ as_need ed} 6xD Albuterol Sulfate HFA 108 (90 Base) MCG/ACT Simvastatin 80 MG Simvastatin 80 MG No 1{table t_in_th e_eveni ng} QD Simvastati n 80 MG Famotidine 20 MG Famotidine 20 MG No 1{table t_at_be dtime} QD Famotidine 20 MG Claritin 10 MG Claritin 10 MG No 1{table t} QD Claritin 10 MG Metoprolol Succinate ER 50 MG Metoprolol Succinate ER 50 MG No 1{table t} BID Metoprolol Succinate ER 50 MG aspirin 1 tab daily aspirin 1 tab daily No aspirin 1 tab daily [facility] atorvastati n 40 mg tablet Take 1 tablet every day by oral route. atorvastati n 40 mg tablet Take 1 tablet every day by oral route. No 1 Q1D atorvastat in 40 mg tablet Take 1 tablet every day by oral route. [facility] metformin 500 mg tablet Take 1 tablet twice a day by oral route. metformin 500 mg tablet Take 1 tablet twice a day by oral route. No 1 BID metformin 500 mg tablet Take 1 tablet twice a day by oral route. [facility] metoprolol tartrate 50 mg tablet Take 1 tablet twice a day by oral route. metoprolol tartrate 50 mg tablet Take 1 tablet twice a day by oral route. No 1 BID metoprolol tartrate 50 mg tablet Take 1 tablet twice a day by oral route. [facility] ProAir HFA 90 mcg/actuati on aerosol inhaler Inhale 2 puffs every 4 hours by inhalation route as needed. ProAir HFA 90 mcg/actuati on aerosol inhaler Inhale 2 puffs every 4 hours by inhalation route as needed. No 2puff(s ) Q4H ProAir HFA 90 mcg/actuat ion aerosol inhaler Inhale 2 puffs every 4 hours by inhalation route as needed. [facility] Vital Signs Vital Name Observation Time Observation Value Comments S ource BP Diastolic 2022-02-08 00:00:00 70 mm[Hg] [facility] Height 2022-02-08 00:00:00 67 [in_i] [facility] BMI (Body Mass Index) 2022-02-08 00:00:00 38.2 kg/m2 [facility] BP Systolic 2022-02-08 00:00:00 118 mm[Hg] [facility] Body Weight 2022-02-08 00:00:00 244 [lb_av] [facility] height 2020-05-06 09:30:00 67 [in_i] [facility] weight 2020-05-06 09:30:00 255.1 [lb_av] [facility] temperature 2020-05-06 09:30:00 97.3 [degF] [facility] bmi 2020-05-06 09:30:00 39.95 kg/m2 [facility] oximetry 2020-05-06 09:30:00 91 % [facility] respiratory rate 2020-05-06 09:30:00 17 /min [facility] blood pressure systolic 2020-05-06 09:30:00 135 mm[Hg] [facility] blood pressure diastolic 2020-05-06 09:30:00 68 mm[Hg] [facility] height 2020-04-21 10:30:00 67 [in_i] [facility] weight 2020-04-21 10:30:00 256.2 [lb_av] [facility] temperature 2020-04-21 10:30:00 97.4 [degF] [facility] bmi 2020-04-21 10:30:00 40.12 kg/m2 [facility] oximetry 2020-04-21 10:30:00 90 % [facility] respiratory rate 2020-04-21 10:30:00 16 /min [facility] blood pressure systolic 2020-04-21 10:30:00 132 mm[Hg] [facility] blood pressure diastolic 2020-04-21 10:30:00 74 mm[Hg] [facility] Procedures Procedure Date / Time Performed Performing Clinician Source electrocardiogram 2022-02-08 00:00:00 [facility] X-RAY OF CHEST 2 VIEW 2022-02-08 00:00:00 [facility] Ligation of Fallopian Tube [facility] Practice Encounters Start Date/Time End Date/Time Encounter Type Admission Type Attending Clinicians Care Facility Care Department Encounter ID Source 2021-07-13 12:06:24 [facility] [id number] [facility] 2021-07-13 12:01:37 [facility] [id number] [facility] 2021-07-13 11:29:31 [facility] [id number] [facility] 2021-07-13 11:16:49 [facility] [id number] [facility] 2021-07-13 11:16:13 [facility] [id number] [facility] 2021-07-13 10:58:34 [facility] [id number] [facility] 2022-10-15 15:37:00 2022-10-15 19:20:00 Emergency EM Irene Cummins [facility] ER [id number] [address] [facility] 2022-02-08 00:00:00 2022-02-08 00:00:00 Outpatient Prakash_S VFP VFP [id number] [facility] 2022-02-08 00:00:00 2022-02-08 00:00:00 Scot Cross MD: [address], [place] [address] , Ph. VFP [place] - [facility] VM_HOU_Beel er Manske [id number] [facility] 2022-01-09 03:42:00 2022-01-09 03:42:00 Outpatient Prakash_S VFP VFP [id number] [facility] 2020-05-06 00:00:00 2020-05-06 00:00:00 OFFICE VISIT EST PT LEVEL 3 [facility]C STLC [id number] [facility] 2020-04-21 00:00:00 2020-04-21 00:00:00 OFFICE VISIT EST PT LEVEL 3 [facility]LMLC STLMLC [id number] [facility] 2019-12-18 10:30:00 2019-12-18 10:30:00 [facility] [id number] [facility] 2019-06-24 10:15:00 2019-06-24 10:15:00 [facility] [id number] [facility] 2019-03-28 10:30:00 2019-03-28 10:30:00 [facility] [id number] [facility] 2019-02-11 11:43:00 2019-02-11 11:43:[address] [facility] [facility] [id number] [facility] 2019-01-07 16:00:00 2019-01-07 16:00:[address] [facility] [id number] [facility] 2018-12-18 09:58:00 2018-12-18 09:58:00 [facility] [id number] [facility] 2018-12-10 09:00:00 2018-12-10 09:00:00 [facility] [id number] [facility] 2018-11-27 12:00:00 2018-11-27 12:00:[address] [facility] [id number] [facility] 2018-10-16 13:15:00 2018-10-16 13:15:[address] [facility] [facility] [address] [facility] [id number] [facility] 2018-09-16 13:00:00 2018-09-16 13:00:[address] [facility] [address] [id number] [facility] 2017-11-30 10:45:00 2017-11-30 10:45:[address] [facility] [address] [facility] [id number] [facility] Results Test Description Test Time Test Comments Results Result Co mments Source [id number] 18:15:00* Test Item Value Reference Range Interpretation Comme nts MAGNESIUM (test code = MAG) 1.3 MG/DL 1.8-2.4 L TROP-I HIGH [id number] 18:15:00* Test Item Value Reference Range Interpretation Comme nts TROP-I HIGH SENSITIVITY (test code = TROPIHS) 8 ng/L < 51 Results above 51 for females and 76 for males are consistent with IFCC Committee recommendations to use the 99th percentile of a normal population as a reference decision-limit. - The use of serial sampling and testing protocol is a recommended practive.- An elevated high sensitiveity troponin level alone is often not sufficient for diagnosis of myocardial infarction.- In order to distinguish acute elevations of high sensitivity troponin from other clinical conditions, the Fourth Warren Definition of Myocardial Infarction stresses clinical assessment and demonstration of a rise and/or fall in serial troponin results above the upper reference limit.Results of this assay method may be falsely depressed orelevated if patient is taking high doses of Biotin. CBC W/AUTO [id number] 17:59:00* Test Item Value Reference Range Interpretation Comme nts WHITE BLOOD CELL (test code = WBC) 9.81 x10 3/uL 4.80-10.80 N RED BLOOD CELL (test code = RBC) 4.68 x10 6/uL 4.2-5.4 N HEMOGLOBIN (test code = HGB) 14.2 G/DL 12.0-16.0 N HEMATOCRIT (test code = HCT) 41.6 % 37-47 N MEAN CELL VOLUME (test code = MCV) 88.9 FL 81-99 N MEAN CELL HGB (test code = MCH) 30.3 PG 27-31 N MEAN CELL HGB CONCENTRATION (test code = MCHC) 34.1 G/DL 33-37 N RED CELL DISTRIBUTION WIDTH (test code = RDW) 13.1 % 11.5-14.5 N PLATELET COUNT (test code = PLT) 228 x10 3/uL 150-450 N MEAN PLATELET VOLUME (test c ode = MPV) 10.1 FL 7.4-10.4 N NEUTROPHIL % (test code = NT%) 68.0 % 42-86 N IMMATURE GRANULOCYTE % (test code = IG%) 0.5 % 0.0-2.0 N LYMPHOCYTE % (test code = LY%) 24.3 % 24-44 N MONOCYTE % (test code = MO%) 5.4 % 0.0-4.0 H EOSINOPHIL % (test code = EO%) 0.8 % 0.0-2.7 N BASOPHIL % (test code = BA%) 1.0 % 0.0-0.5 H NUCLEATED RBC % (test code = NRBC%) 0.0 % 0.0-0.0 N NEUTROPHIL # (test code = NT#) 6.67 x10 3/uL 1.8-7.7 N IMMATURE GRANULOCYTE # (test code = IG#) 0.05 x10 3/uL 0.00-0.03 H LYMPHOCYTE # (test code = LY#) 2.38 x10 3/uL 1.0-4.8 N MONOCYTE # (test code = MO#) 0.53 x10 3/uL 0.0-0.8 N EOSINOPHIL # (test code = EO#) 0.08 x10 3/uL 0.0-0.5 N BASOPHIL # (test code = BA#) 0.10 x10 3/uL 0.0-0.2 N NUCLEATED RBC # (test code = NRBC#) 0.0 X10 3/uL 0.0-0.2 N - XR ELBOW 3+V [id number] 16:46:00 [facility] 1960 Sex: F Patient Name: KASI HWANG Unit No: [id number] EXAMS: CPT CODE: [id number] XR ELBOW 3+V LT [address] Reason: fall and swelling EXAM: - XR SHOULDER 2+V LT, - XR HUMERUS 2+V LT, - XR ELBOW 3+V LT INDICATION: fall and swelling LOCATION: H50 COMPARISON: None available. TECHNIQUE: 3 views of the left shoulder and elbow and 2 views of the left humerus were obtained. FINDINGS: No acute fracture or malalignment is seen. The soft tissues are unremarkable. IMPRESSION: No acute fracture or malalignment. at 1646 Reported and signed by: Irene Persaud MD CC: Irene Sosa Technologist: Reina Mensah (Krista) RT Trscrpt Dt/ (1645)t.EB14 Orig Print D/T: S: 10/15/2022 (1648) [facility] NAME: KASI HWANG [address] PHYS: [place] [address] : 1960 AGE: 62 SEX: F LOC: KULWINDER PHONE #: [phone] EXAM DATE: 10/15/2022STATUS: REG ER FAX #: RAD NO: DC Dt: PAGE 1 Signed Report- XR HUMERUS 2+V [id number] 16:46:00 [facility] 1960 Sex: F Patient Name: KASI HWANG Unit No: [id number] EXAMS: CPT CODE: [id number] XR HUMERUS 2+V LT 46665 Reason: fall and swelling EXAM: - XR SHOULDER 2+V LT, - XR HUMERUS 2+V LT, - XR ELBOW 3+V LT INDICATION: fall and swelling LOCATION: H50 COMPARISON: None available. TECHNIQUE: 3 views of the left shoulder and elbow and 2 views of the left humerus were obtained. FINDINGS: No acute fracture or malalignment is seen. The soft tissues are unremarkable. IMPRESSION: No acute fracture or malalignment. at 1646 Reported and signed by: Irene Persaud MD CC: Irene Sosa Technologist: Reina Mensah (Krista) RT Trscrpt Dt/ (1645)t.EB14 Orig Print D/T: S: 10/15/2022 (1648) [facility] NAME: KASI HWANG [address] PHYS: [place] [address] : 1960 AGE: 62 SEX: F LOC: KULWINDER PHONE #: [phone] EXAM DATE: 10/15/2022 STATUS: REG ER FAX #: RAD NO: DC Dt: PAGE 1 Signed Report- XR SHOULDER 2+V [id number] 16:46:00 [facility] 1960 Sex: F Patient Name: KASI HWANG Unit No: [id number] EXAMS: CPT CODE: [id number] XR SHOULDER 2+V LT 78272Pdemyf: fall and swelling EXAM: - XR SHOULDER 2+V LT, - XR HUMERUS 2+V LT, - XR ELBOW 3+V LT INDICATION: fall and swelling LOCATION: H50 COMPARISON: None available. TECHNIQUE: 3 views of the left shoulder and elbow and 2 views of the left humerus were obtained. FINDINGS: No acute fracture or malalignment is seen. The soft tissues are unremarkable. IMPRESSION: No acute fracture or malalignment. at 1646 Reported and signed by: Irene Persaud MD CC: Irene GÓMEZ Ian Technologist: Reina Mensah (Krista) RT Trscrpt Dt/ (1645)t.EB14 Orig Print D/T: S: 10/15/2022 (1648) [facility] NAME: KASI HWANG [address] [facility] PHYS: [place] [address] : 1960 AGE: 62 SEX: F LOC: KULWINDER PHONE #: [phone] EXAM DATE: 10/15/2022 STATUS: REG ER FAX #: RAD NO: DC Dt: PAGE 1 Signed Report- XR ANKLE 3+V [id number] 16:46:00 [facility] 1960 Sex: F Patient Name: KASI HWANG Unit No: [id number] EXAMS: CPT CODE: [id number] XR ANKLE 3+V RT 97097 Reason: fall and swelling EXAM: - XR ANKLE 3+V RT INDICATION: fall and swelling LOCATION: H50 COMPARISON: None available. TECHNIQUE: 3 views of the right ankle were obtained. FINDINGS: No acute fractureor malalignment is seen. The soft tissues are unremarkable. IMPRESSION: No acute fracture or malalig nment. at 1646 Reportedand signed by: Irene Persaud MD CC: Irene Sosa Technologist: Reina Mensah (Krista) RT Trscrpt Dt/ (1645)t.EB14 Orig Print D/T: S: 10/15/2022 (1648) [facility] NAME: KASI HWANG [address] PHYS: [place] [address] : 1960 AGE: 62 SEX: F LOC: KULWINDER PHONE #: [phone] EXAM DATE: 10/15/2022 STATUS: REG ER FAX #: RAD NO: DC Dt: PAGE 1 Signed Report- XR PELVIS 1/2 [id number] 16:45:00 [facility] 1960 Sex: F Patient Name: KASI HWANG Unit No: [id number] EXAMS: CPT CODE: [id number] XR PELVIS 1/2 VIEWS 50287Xinwas: fall EXAM: - XR PELVIS 1/2 VIEWS INDICATION: fall LOCATION: H50 COMPARISON: None available.TECHNIQUE: AP radiograph of the entire pelvis was obtained.. FINDINGS: No acute fracture or malalignment is seen. The soft tissues are unremarkable. IMPRESSION: No acute fracture or malalignment. E lectronically Signed by Irene Persaud MD on 10/15/2022 at 1645 Reported and signed by: Irene Persaud MD CC: Irene Sosa Technologist: Reina Mensah (Krista) RT Trscrpt Dt/ (1644)t.[id number] Orig Print D/T: S: 10/15/2022 (8783) [facility] NAME: KASI HWANG [address]: [place] [address] : 1960 AGE: 62 SEX: F LOC: KULWINDER PHONE #: [phone] EXAM DATE: 10/15/2022 STATUS: REG ER FAX #: RAD NO: DC Dt: PAGE 1 Signed Report- XR CHEST 1 [id number] 16:44:00 [facility] 1960 Sex: F Patient Name: KASI HWANG Unit No: [id number] EXAMS: CPT CODE: [id number] XR CHEST 1 V 04018 Reason: fall EXAM: XR Chest 1 View INDICATION: fall LOCATION: H50 COMPARISON: None available. TECHNIQUE: Frontal view of the chest was obtained. FINDINGS: The lungs are clear. There is no pleural effusion or pneumothorax. The cardiomediastinal silhouette is unremarkable. No acute osseous abnormality is id entified. IMPRESSION: No acute cardiopulmonary abnormality. at 1644 Reported and signed by: Irene Persaud MD CC: Irene Sosa Technologist: Reina Mensah (Krista) RT Trscrpt Dt/ (1644)[id number] Orig Print D/T: S: 10/15/2022 (2088) [facility] NAME: KASI HWANG [address] PH[address]: [place] [address] : 1960 AGE: 62 SEX: F LOC: KULWINDER PHONE #: [phone] EXAM DATE: 10/15/2022 STATUS: REG ER FAX #: RAD NO: DC Dt: PAGE 1 [facility] W/AUTO DIFF WITH [id number] 03:55:01* Test Item Value Reference Range Interpretation Comme nts WBC (test code = 1001) 6.5 K/UL 3.5-11.0 RBC (test code = 1002) 5.38 M/UL 3.80-5.40 HEMOGLOBIN (test code = 1003) 16.7 G/DL 11.5-15.5 H HEMATOCRIT (test code = 1004) 48.0 % 34.0-45.0 H MCV (test code = 1005) 89.2 fL 80.0-99.0 MCH (test code = 1006) 31.0 PG 25.0-33.0 MCHC (test code = 1007) 34.8 G/DL 31.0-36.0 RDW (test code = 1038) 13.0 % 11.5-15.0 NEUTROPHILS (test code = 1008) 51.8 % LYMPHOCYTES (test code = 1010) 37.3 % MONOCYTES (test code = 1011) 7.6 % EOSINOPHILS (test code = 1012) 2.0 % BASOPHILS (test code = 1013) 1.1 % IMMATURE GRANULOCYTES (test code = 1036) 0.2 % NUCLEATED RBCS (test code = 1065) 0.0 /100 WBC'S See_Comment [Automated messa ge] The system which generated this result transmitted reference range: 0.0. The reference range was not used to interpret this result as normal/abnormal. PLATELET COUNT (test code = 1015) 227 K/UL 130-400 ABSOLUTE NEUTROPHILS (test code = 1066) 3.37 K/UL 1.50-7.50 ABSOLUTE LYMPHOCYTES (test code = 1067) 2.42 K/UL 1.00-4.00 ABSOLUTE MONOCYTES (test code = 1068) 0.49 K/UL 0.20-1.00 ABSOLUTE EOSINOPHILS (test code = 1040) 0.13 K/UL 0.00-0.50 ABSOLUTE BASOPHILS (test code = 1069) 0.07 K/UL 0.00-0.20 ABS IMMATURE GRANULOCYTES (test code = 1020) 0.01 K/UL 0.00-0.10 ABS NUCLEATED RBCS (test code = 25109) 0.00 K/UL 0.00-0.11 HEPATITIS PANEL, [id number] 03:47:45* Test Item Value Reference Range Interpretation Comme nts HEPATITIS A IgM (test code = 95554) REACTIVE NON-REACTIVE H HEPATITIS B CORE IgM (test code = 4644) NON-REACTIVE NON-REACTIVE HEPATITIS B SURF AG (test code = 2739) NON-REACTIVE NON-REACTIVE HEPATITIS C ANTIBODY (test code = 4675) NON-REACTIVE NON-REACTIVE INTERPRETATION HEPATITIS A: (test code = 2552) (NOTE) Hepatitis A sero logy consistent with acute hepatitis A infection.Patient may be contagious at this time. INTERPRETATION HEPATITIS B: (test code = 50820) (NOTE) Hepatitis B sero logy shows no evidence of acute hepatitis B andno indication of exposure to hepatitis B virus in the previous walker eight months. INTERPRETATION HEPATITIS C: (test code = 17252) (NOTE) Hepatitis C sero logy shows no evidence of exposure to hepatitisC virus at this time. It can take up to 12 months after exposure tothe hepatitis C virus for antibodies to become detectable in the blood in certain patients. UNLESS OTHERWISE INDICATED, ALL TESTING PERFORMED AT[facility] [address] [place] [address] [employer] MANAGER: LYNN NEAL M.D. CLIA NUMBER [id number] [place]. [id number] [facility] THIRD [id number] 04:33:43* Test Item Value Reference Range Interpretation Comme nts TSH, THIRD GENERATION (test code = 2821) 1.650 UIU/ML 0.400-4.100 COMPREHENSIVE METABOLIC [id number] 04:10:50* Test Item Value Reference Range Interpretation Comme nts GLUCOSE (test code = 2216) 93 MG/DL 70-99 BUN (test code = 2207) 12 MG/DL 8-23 CREATININE (test code = 2213) 0.82 MG/DL 0.60-1.30 eGFR (2020 CKD-EPI) (test code = 61855) 82 ML/MIN/1.73 >60 CALC BUN/CREAT (test code = 5) 15 RATIO 6-28 SODIUM (test code = 2230) 142 MEQ/L 133-146 POTASSIUM (test code = 2227) 4.5 MEQ/L 3.5-5.4 CHLORIDE (test code = 2214) 99 MEQ/L 95-107 CARBON DIOXIDE (test code = 2205) 30 MEQ/L 19-31 CALCIUM (test code = 2208) 9.8 MG/DL 8.5-10.5 PROTEIN, TOTAL (test code = 2228) 8.4 G/DL 6.1-8.3 H ALBUMIN (test code = 2200) 4.5 G/DL 3.5-5.2 CALC GLOBULIN (test code = 2240) 3.9 G/DL 1.9-3.7 H CALC A/G RATIO (test code = 2233) 1.2 RATIO 1.0-2.6 BILIRUBIN, TOTAL (test code = 2206) 0.5 MG/DL See_Comment [Automated me ssage] The system which generated this result transmitted reference range: <=1.2. The reference range was not used to interpret this result as normal/abnormal. ALKALINE PHOSPHATASE (test code = 2203) 81 U/L 40-136 AST (test code = 8) 19 U/L 9-40 ALT (test code = 9) 19 U/L 5-40 HEMOGLOBIN [id number] 03:55:11* Test Item Value Reference Range Interpretation Comme nts HEMOGLOBIN A1c (test code = 08103) 5.9 % 4.2-5.6 H HIV 1/2 4TH GEN, RFLX [id number] 03:51:01* Test Item Value Reference Range Interpretation Comme nts HIV 1/2 4TH GEN, RFLX CONF ( test code = 3514) NON-REACTIVE NON-REACTIVE HEPATITIS PANEL, [id number] 03:51:01* Test Item Value Reference Range Interpretation Comme nts HEPATITIS A IgM (test code = 76474) REACTIVE NON-REACTIVE H HEPATITIS B CORE IgM (test code = 4644) NON-REACTIVE NON-REACTIVE HEPATITIS B SURF AG (test code = 2739) NON-REACTIVE NON-REACTIVE HEPATITIS C ANTIBODY (test code = 4675) NON-REACTIVE NON-REACTIVE INTERPRETATION HEPATITIS A: (test code = 2552) (NOTE) Hepatitis A sero logy consistent with acute hepatitis A infection.Patient may be contagious at this time. INTERPRETATION HEPATITIS B: (test code = 38759) (NOTE) Hepatitis B sero logy shows no evidence of acute hepatitis B andno indication of exposure to hepatitis B virus in the previous walker eight months. INTERPRETATION HEPATITIS C: (test code = 94038) (NOTE) Hepatitis C sero logy shows no evidence of exposure to hepatitisC virus at this time. It can take up to 12 months after exposure tothe hepatitis C virus for antibodies to become detectable in the blood in certain patients. UNLESS OTHERWISE INDICATED, ALL TESTING PERFORMED [facility] [address] [place] [address] [employer] MANAGER: LYNN NEAL M.D. CLIA NUMBER [id number] [facility] [place]. [id number] CBC W/AUTO DIFF WITH [id number] 03:36:48* Test Item Value Reference Range Interpretation Comme nts WBC (test code = 1001) 8.0 K/UL 3.5-11.0 RBC (test code = 1002) 5.54 M/UL 3.80-5.40 H HEMOGLOBIN (test code = 1003) 17.2 G/DL 11.5-15.5 H HEMATOCRIT (test code = 1004) 49.9 % 34.0-45.0 H MCV (test code = 1005) 90.1 fL 80.0-99.0 MCH (test code = 1006) 31.0 PG 25.0-33.0 MCHC (test code = 1007) 34.5 G/DL 31.0-36.0 RDW (test code = 1038) 13.6 % 11.5-15.0 NEUTROPHILS (test code = 1008) 53.9 % LYMPHOCYTES (test code = 1010) 35.3 % MONOCYTES (test code = 1011) 6.9 % EOSINOPHILS (test code = 1012) 2.5 % BASOPHILS (test code = 1013) 1.1 % IMMATURE GRANULOCYTES (test code = 1036) 0.3 % NUCLEATED RBCS (test code = 1065) 0.0 /100 WBC'S See_Comment [Automated messa ge] The system which generated this result transmitted reference range: 0.0. The reference range was not used to interpret this result as normal/abnormal. PLATELET COUNT (test code = 1015) 250 K/UL 130-400 ABSOLUTE NEUTROPHILS (test code = 1066) 4.28 K/UL 1.50-7.50 ABSOLUTE LYMPHOCYTES (test code = 1067) 2.81 K/UL 1.00-4.00 ABSOLUTE MONOCYTES (test code = 1068) 0.55 K/UL 0.20-1.00 ABSOLUTE EOSINOPHILS (test code = 1040) 0.20 K/UL 0.00-0.50 ABSOLUTE BASOPHILS (test code = 1069) 0.09 K/UL 0.00-0.20 ABS IMMATURE GRANULOCYTES (test code = 1020) 0.02 K/UL 0.00-0.10 ABS NUCLEATED RBCS (test code = 85247) 0.00 K/UL 0.00-0.11 Notes Date/Time Note Provider Source 2022-10-15 15:52:00 [id number]:52:00 [facility])OR A CAMPUS OF [facility]SEMERGENCY PROVIDER REPORTREPORT#:[id number] REPORT STATUS: SignedDATE:10/15/22 TIME: 1551 PATIENT: KASI HWANG UNIT #: [id number]#: [id number] ROOM/BED:AGE: 62 SEX: F PCP PHYS: Javier Garcia MDSERVICE AUTHOR: Kashif Sosa * ALL edits or amendments must be made on the electronic/computer document * Kashif Sosa 10/15/22 1552:HPI-Trauma Minor/Fall Free Text HPI NotesFree Text HPI [id number] female presents emergency see room status post slipped on water on the ground at the [facility] just prior to arrival. Patient complains of left shoulder pain, right ankle pain. She denies right elbow pain but there is a tiny abrasion noted. Patient is a past medical history of COPD and is on home oxygen as needed. She denies hitting her head there was no loss of consciousness and there is no blood thinner use. GeneralConfirmed Patient YesInitial Greet Date/Time 10/15/22 1549 PresentationChief Complaint Slipped Risk-Trauma Minor/Fall Risk StratificationNexus C-Spine CriteriaNo: Post midline tenderness, Intoxicated, Altered LOC/alertness, Focal neuro deficit pres, Distracting injury pres. Review of Systems Free Text ROS NotesFree Text ROS NotesCONSTITUTIONAL: No fever, fatigue or weight loss.SKIN: No rash.HENT: No congestion, ear pain, or sore throat.EYES: No recent vision problems or eye pain.ENDOCRINE: No thyroid problems. No polyuria or polydipsia.CARDIOVASCULAR: No chest pain or syncopeRESPIRATORY: No cough, shortness of breath, congestion, or wheezing.GASTROINTESTINAL: No abdominal pain, nausea, vomiting, bloody stools or diarrhea.GENITOURINARY: No dysuria.MUSCULOSKELETAL: Left shoulder pain, right ankle pain, tiny abrasion right elbowLYMPHATIC: No swollen glands.NEUROLOGIC: No seizures. No headache, focal weakness or sensory changes.HEMATOLOGIC: No unusual bruising or bleeding.PSYCHIATRIC: No depression or anxiety. Past Medical History - AdultStated Complaint FALL, EXTREMITY INJURYAllergiesCoded Allergies:hydrocodone (Severe, HIVES 10/15/22) Review of Nursing Notes Rapid assess notes revSmoking status for patients 13 years old or older: Unknown,if ever smoked Physical Exam Vital SignsVital SignsFirst Documented: Result Date Time Pulse Ox 96 10/15 1540 B/P 176/106 10/15 1540 B/P Mean 129 10/15 1540 O2 Delivery Room air 10/15 1540 Temp 97.6 10/15 1540 Pulse 118 10/15 1540 Resp 19 10/15 154 Last Documented: Result Date Time Pulse Ox 93 10/16 1919 B/P 168/84 10/16 1919 B/P Mean 112 10/16 1919 O2 Delivery Room air 10/16 1919 Temp 98.1 10/16 1919 Pulse 89 10/16 1919 Resp 20 10/16 1919 Review of Vital Signs Reviewed, tachycardia Free Text PE NotesFree Text PE NotesGENERAL: No acute distress, non-toxic appearance, morbid obesity.HEAD: Normal with no signs of head trauma.EYES: PERRLA, EOMI, conjunctiva normal, no discharge.EARS: Hearing grossly intact.NOSE: Normal.THROAT: Oropharynx is normal.NECK: Normal range of motion, no tenderness, supple, no lymphadenopathy, No adenopathy, no JVD.CHEST: Clear breath sounds bilaterally. No wheezes, rales, or rhonchi.CARDIAC: Mild tachycardia, regular rate and rhythm. S1 and S2, without murmurs, gallops, or rubs.VASCULAR: No Edema. Peripheral pulses normal and equal in all extremities.ABDOMEN: Normal and soft with no tenderness, no masses or pulsatile masses.GASTROINTESTINAL: Bowel sounds normalGENITOURINARY: Normal, No tendernessLYMPATHTIC: No lymphadenopathy noted.MUSCULOSKELETAL: Good range of motion of all major joints. Extremities without clubbing, cyanosis or edema. Pain with ROM of left shoulderNEUROLOGICAL: Alert and oriented x 3. No focal sensory or strength deficits. Speech normal. Follows commands appropriately.PSYCHIATRIC: Normal Affect, judgement and mood.SKIN: Proximately half centimeter tiny superficial abrasion right elbow, no obvious bruising or swelling noted to right ankle or left shoulder Interpretation Diagnostics Lab Results InterpretationResultsLaboratory Tests 10/15/221748:[Embedded Image Not Available]Laboratory Tests: 10/15 1748 Chemistry Sodium (133 - 145 MMOL/L) 140 Potassium (3.6 - 5.2 MMOL/L) 3.8 Chloride (100 - 108 MMOL/L) 104 Carbon Dioxide (22 - 32 MMOL/L) 28 BUN (6 - 20 MG/DL) 12 Creatinine (0.60 - 1.00 MG/DL) 1.00 Estimated GFR (MDRD) (45 - 104) 64 Glucose (65 - 99 MG/DL) 111 H Calcium (8.7 - 10.5 MG/DL) 9.6 Magnesium (1.8 - 2.4 MG/DL) 1.3 L Total Bilirubin (0.0 - 1.0 MG/DL) 0.4 AST (15 - 37 Units/L) 25 ALT (30 - 65 Units/L) 27 L Alkaline Phosphatase (50 - 136 Units/L) 80 Troponin I High Sens (< 51 ng/L) 8 Total Protein (6.4 - 8.2 G/DL) 8.4 H Albumin (3.4 - 5.0 G/DL) 4.3 Globulin (1.5 - 3.8 G/DL) 4.1 H Albumin/Globulin Ratio (1.1 - 2.2) 1.0 L Hematology WBC (4.80 - 10.80 x10 3/uL) 9.81 RBC (4.2 - 5.4 x10 6/uL) 4.68 Hgb (12.0 - 16.0 G/DL) 14.2 Hct (37 - 47 %) 41.6 MCV (81 - 99 FL) 88.9 MCH (27 - 31 PG) 30.3 MCHC (33 - 37 G/DL) 34.1 RDW Coeff of Iker (11.5 - 14.5 %) 13.1 Plt Count (150 - 450 x10 3/uL) 228 MPV (7.4 - 10.4 FL) 10.1 Neut % (Auto) (42 - 86 %) 68.0 Lymph % (Auto) (24 - 44 %) 24.3 Schleicher % (Auto) (0.0 - 4.0 %) 5.4 H Eos % (Auto) (0.0 - 2.7 %) 0.8 Baso % (Auto) (0.0 - 0.5 %) 1.0 H Eos # (Auto) (0.0 - 0.5 x10 3/uL) 0.08 Baso # (Auto) (0.0 - 0.2 x10 3/uL) 0.10 Abs Immat Gran (auto) (0.00 - 0.03 x10 3/uL) 0.05 H Absolute Neuts (auto) (1.8 - 7.7 x10 3/uL) 6.67 Absolute Lymphs (auto) (1.0 - 4.8 x10 3/uL) 2.38 Absolute Monos (auto) (0.0 - 0.8 x10 3/uL) 0.53 Absolute Nucleated RBC (0.0 - 0.2 X10 3/uL) 0.0 Immature Gran % (0.0 - 2.0 %) 0.5 Nucleated RBC % (0.0 - 0.0 %) 0.0 Recent Impressions:RADIOLOGY - XR ANKLE 3+V RT 10/15 1610 Report Impression - Status: SIGNED Entered: 10/15/2022 1649 IMPRESSION:No acute fracture or malalignment.Impression By: Karen Persaud, MDRADIOLOGY - XR ELBOW 3+V LT 10/15 1610 Report Impression - Status: SIGNED Entered: 10/15/2022 1649 IMPRESSION:No acute fracture or malalignment.Impression By: Karen Persaud, MDRADIOLOGY - XR CHEST 1 V 10/15 1610 Report Impression - Status: SIGNED Entered: 10/15/2022 1648 IMPRESSION:No acute cardiopulmonary abnormality. Impression By: Karen Persaud, MDRADIOLOGY - XR PELVIS 1/2 VIEWS 10/15 1610 Report Impression - Status: SIGNED Entered: 10/15/2022 1648 IMPRESSION:No acute fracture or malalignment.Impression By: Karen Persaud, MDRADIOLOGY - XR SHOULDER 2+V LT 10/15 1610 Report Impression - Status: SIGNED Entered: 10/15/2022 1649 IMPRESSION:No acute fracture or malalignment.Impression By: Karen Persaud, MDRADIOLOGY - XR HUMERUS 2+V LT 10/15 1610 Report Impression - Status: SIGNED Entered: 10/15/2022 1649 IMPRESSION:No acute fracture or malalignment.Impression By: Karen Persaud MD Re-Evaluation MDM Free Text MDM NotesFree Text MDM [id number] female here for mechanical fall status post slipped on a wet floor at the [facility]. Plan x-rays. There is no LOC or blood thinner use. Patienthas a past medical history of COPD hypertension and diabetes. 1730 discussed results of findings with patient there are no acute fractures. Patient states that she has been out of her blood pressure and diabetes medication and her inhaler for about 2 weeks. She states she just moved to the area And has tried calling the number that she found for her new PCP but has notbeen able to get through. She denies any current chest pain or shortness of breath but is requesting a short-term refill on her medications. We will add basic labs at her request.Additional TextNo acute abnormalities are identified. We will provide a short course of metoprolol pending follow-up with primary care doctor. ER return precautions and plan of care discussed ED CourseMedication(s) OrderedMedication(s) Ordered:Central Nervous System Agents Sig/Yani Start time Last Medication Dose Route Stop Time Status Admin Acetaminophen/ 1 TAB X1ED STA 10/15 1653 DCr 10/15 Codeine Phosphate PO 10/15 1654 1720 Gastrointestinal Drugs Sig/Yani Start time Last Medication Dose Route Stop Time Status Admin Magnesium Oxide 800 MG X1ED STA 10/15 1819 DC PO 10/15 1820 Patient Discharge Departure Vital Signs/ConditionVital SignsFirst Documented: Result Date Time Pulse Ox 96 10/15 1540 B/P 176/106 10/15 1540 B/P Mean 129 10/15 1540 O2 Delivery Room air 10/15 1540 Temp 97.6 10/15 1540 Pulse 118 10/15 1540 Resp 19 10/15 1540 Last Documented: Result Date Time Pulse Ox 93 10/15 1920 B/P 168/84 10/15 1920 B/P Mean 112 10/15 1920 O2 Delivery Room air 10/15 1920 Temp 98.1 10/15 1920 Pulse 89 10/15 1920 Resp 20 10/15 1920 All vital signs available at the time of this entry have been reviewed. Clinical ImpressionClinical ImpressionPrimary Impression: Contusion of shoulder, leftSecondary Impressions: COPD (chronic obstructive pulmonary disease), HTN (hypertension), Right ankle strain Disposition DecisionDischarge )( Discharged to Home Yes )( Time 182 )( Date 10/15/22 Discharge/Care PlanCounseled Regarding Diagnosis, Lab results, Imaging studies, Need for follow-up,When to return to ED(Auto) PrescriptionsCurrent Visit ScriptsACETAMINOPHEN ER (TYLENOL ARTHRITIS PAIN) 650 MG PO Q8H PRN PRN PAIN ACETAMINOPHEN ER (TYLENOL ARTHRITIS PAIN) 650 MG PO Q8H PRN PRN PAIN #50 TABS METOPROLOL SUCC XL (TOPROL XL) 50 MG PO BID 14 Days #28 TABS ALBUTEROL (PROAIR HFA 90 MCG/ACT 8.5 GM) 2 PUFF INH RTQ4H PRN PRN DYSPNEA/WHEEZING ALBUTEROL (PROAIR HFA 90 MCG/ACT 8.5 GM) 2 PUFF INH RTQ4H PRN PRN DYSPNEA/WHEEZING #8.5 GM Patient Instructions ED Ankle Sprain (Adult), ED Hypertension, Established, ED Shoulder Bruise, Understanding COPD Flare-Ups - ...Additional InstructionsYou will need to establish care with your local primary care doctor, you can call the [place] [facility] to make an appointment if you are unable to see your PCP. We have discussed the importance of taking anti-inflammatory medication resting and applying ice to this injury. I recommend follow-up with your primary care provider and consider consultation with orthopedist if pain does not resolve in a few days to a week. An injury like this may require additional evaluation youmay consider AIRROSTI therapy, traditional physical therapy, or additional imaging such as MRI with evaluation by orthopedist for surgical interventions ifindicated. Follow up: Please follow-up with your primary care doctor in the next 1-2 days. Please call tomorrow for an appointment. If you cannot follow-up with your primary care doctor please return to the ED for any urgent issues. Instructions: If you have any worsening of symptoms or any other concerns pleasereturn to the ED immediately. Please continue taking your home medications as directed. If you were given any prescriptions, please take them as directed. Do not drive or operate heavy machinery while taking narcotic medications. Do not drink alcohol while taking antibiotics or narcotics. Keep in mind that all X-Rays, CT's, MRI's and Ultrasounds read after hours may be over-read the following day by the staff radiologist DO NOT DRIVE AFTER TAKING NARCOTICS, SEDATIVES, OR OTHER MEDICATIONS THAT MAY CAUSE SEDATION. RETURN TO THE EMERGENCY DEPARTMENT NEEDED FOR WORSENING SYMPTOMS. THANK YOU FOR CHOOSING [facility] FOR YOUR EMERGENCY NEEDS. JORDIN DARRYL VICKY CON TAPIA DOCTOR PARA VERLO EN 1 A 2 DELUNA. SI EMPEORAN ARELI SINTOMAS REGRESE A LA EMERGENCIA. FARIBA POR ELEGIR [facility] PARA TAPIA NECESIDADES DE LA EMERGENCIA. CLINICS:[facility] - [phone] [address] [place], [place] [id number] [facility] - [phone] [address] [place], [place] [address]G[facility] CLINIC: [id number] (MUST ARRANGE NUECES AIDE FIRST)[phone] [facility]: [id number] [address] ([place]) OPEN EVERY SUNDAY - [phone] CLINIC: [address] [place], [phone] IF YOU HAVE NO INSURANCE AND LIVE IN [facility], YOU MAY QUALIFY FOR [facility]. CALL TO SIGN UP AND/OR CALL FOR A LIST OF REQUIREMENTS. FOR SCHEDULING APPOINTMENTS CALL . IF YOU LIVE IN [facility] AND DO NOT QUALIFY FOR [facility], [facility] AIDE, [facility]: [address] [facility], [address], [place], [place] [phone] IF YOU LIVE IN [facility] AND HAVE NO INSURANCE, YOU MAY BE ABLE TO BE SEEN AT THE [facility] DEPARTMENT [address] [facility] [address] [place], [place]. CALL [phone] TO SEE IF YOU QUALITY AND/OR TO SCHEDULE AN APPOINTMENT. [facility]: [address], [address] [facility]: [address], [place], [place], [place] [facility]: [address], [place]: [address], [place]: [address] [facility], [address], [place] Discharge NoteI have spoken with the patient and/or caregivers. I have explained the patient'scondition, diagnoses and treatment plan based on the information available to meat this time. I have answered the patient's and/or caregiver's questions and addressed any concerns. The patient and/or caregivers have as good an understanding of the patient's diagnosis, condition and treatment plan as can beexpected at this point. The vital signs have been stable. The patient's condition is stable and appropriate for discharge from the emergency department. The patient will pursue further outpatient evaluation with the primary care physician or other designated or consulting physician as outlined in the discharge instructions. The patient and/or caregivers are agreeable to this planof care and follow-up instructions have been explained in detail. The patient and/or caregivers have received these instructions in written format and have expressed an understanding of the discharge instructions. The patient and/or caregivers are aware that any significant change in condition or worsening of symptoms should prompt an immediate return to this or the closest emergency department or a call to 911. Irene Cummins 10/22/22 1215:Patient Discharge Departure Supervising Physician Note Patricio Saw Pt AloneI was available for consultation as needed at all times during the patient's visit in the emergency department. I was not asked to see this patient. Chart was signed after patient discharged per department requirement. at 1448 at 1216RPT #:[id number] OF REPORTEDEmergency department [id number]:52:00D.[id number] ilable for patient [id number]:49:02 [facility]
[2023-10-11] MEDS ORDERED: METOPROLOL TARTRATE 5 MG/5 ML INJ IV ONE (09:42)
[2023-10-11 09:54] LABS: Absolute Basophils 0.1 K/uL (0-0.5); Absolute Eosinophils 0.1 K/uL (0-0.5); Absolute Lymphocytes (CBC) 3.5 K/uL (0.7-4.9); Absolute Monocytes 0.4 K/uL (0.1-1.3); Absolute Neutrophil 3.1 K/uL (1.8-8.0); Basophils % 1.2 % (0-1.3); Eosinophils % 1.7 % (0-4.4); Hematocrit 40.1 % (36.0-45.0); Hemoglobin 13.6 g/dL (12.0-15.0); Lymphocytes % 48.2 % (15.3-44.8); MCH 30.5 pg (27.0-35.0); MCHC 33.8 g/dL (32.0-36.0); MCV 90.3 fL (80-100); MPV 8.4 fL (7.6-11.3); Monocytes % 5.8 % (3.3-12.3); Neutrophils % 43.1 % (41.7-73.7); Nucleated Red Blood Cells % 0.2 % (0-0); Platelets 242 thou/uL (152-406); RBC Red Blood Cell Count 4.44 M/uL (3.86-4.86); Red Cell Distribution Width 14.4 % (12.1-15.2)
[2023-10-11] MEDS ORDERED: ONDANSETRON 4 MG/2 ML VIAL ONE (10:09)
--- NOTE | 2023-10-11 10:14 | RAD REPORT ---
EXAM DESCRIPTION: RAD - Chest Single View - 10/11/2023 10:01 am CLINICAL HISTORY: CHEST PAIN Chest pain. COMPARISON: Chest Pa And Lat (2 Views) dated 05/09/2019; Chest Single View dated 05/08/2019; Chest S marian View dated 11/24/2016; CHEST SINGLE VIEW dated 03/30/2008 FINDINGS: Portable technique limits examination quality. Mild interstitial pulmonary edema. The heart is mildly enlarged in size. No displaced fractures. IMPRESSION: Mild CHF.
[2023-10-11 10:18] LABS: Albumin 3.6 g/dL (3.4-5.0); Albumin/Globulin Ratio 0.9 (1.1-1.8); Anion Gap 11.6 mEq/L (5.0-15.0); Bilirubin Direct 0.1 mg/dL (0-0.2); Bilirubin Indirect, Calculated 0.3 mg/dL (0.2-0.8); Bilirubin Total 0.4 mg/dL (0.2-1.0); Globulin 3.8 g/dL (2.3-3.5); Magnesium 1.9 mg/dL (1.6-2.4); Potassium 3.6 mEq/L (3.5-5.1); Protein, Total 7.4 g/dL (6.4-8.2); Troponin High Sensitivity 7.1 pg/mL (<58.9)
[2023-10-11] MEDS ORDERED: NA CHLORIDE 0.9% 1,000 ML ONE (10:25)
[2023-10-11] MEDS ORDERED: dilTIAZem HCL 25 MG/5 ML VIAL IV ONE (11:18)
[2023-10-11] MEDS ORDERED: METOPROLOL XL 50 MG TAB PO ONE (11:18)
[2023-10-11] MEDS ORDERED: NA CHLORIDE 0.9% 250 ML ONE (11:19)
[2023-10-11] MEDS ORDERED: DILTIAZEM INJ 125 MG/25 ML 125 MG in NA CHLORIDE 0.9% 100 ML IV SCH (12:00)
--- NOTE | 2023-10-11 12:33 | ER ---
Nurse's Notes [facility] Name: Antonella Hwang Age: 63 yrs Sex: Female : 1960 Arrival Date: 10/11/2023 Time: 09:31 Bed 15 Private MD: Diagnosis: Atrial fibrillation with rapid ventricular rate Presentation: 10/10 09:43 Chief complaint: Patient states: SOB, palpitations, sweaty, CP started this morning. HR ll1 180's at home. Coronavirus screen: Client denies travel out of the [place] in the last 14 days. At this time, the client does not indicate any symptoms associated with coronavirus-19. Ebola Screen: Patient denies travel to an Ebola-affected area in the 21 days before illness onset. Initial Sepsis Screen: Does the patient meet any 2 criteria? No. Patient's initial sepsis screen is negative. Does the patient have a suspected source of infection? No. Patient's initial sepsis screen is negative. Risk Assessment: Do you want to hurt yourself or someone else? Patient reports no desire to harm self or others. Onset of symptoms was October 11, 2023. 09:43 Method Of Arrival: Wheelchair ll1 09:43 Acuity: AFTAB 2 ll1 Historical: - Allergies: 09:43 Hydrocodone-Acetaminophen; ll1 - PMHx: 09:43 Anxiety; CVA; GERD; High Cholesterol; SVT; ll1 - Immunization history:: Adult Immunizations up to date. - Infectious Disease History:: Denies. - Social history:: Smoking status: Patient/guardian denies using tobacco. - Family history:: not pertinent. Screenin:00 [facility] ED Fall Risk Assessment (Adult) History of falling in the last 3 months, nj1 including since admission No falls in past 3 months (0 pts) Confusion or Disorientation No (0 pts) Intoxicated or Sedated No (0 pts) Impaired Gait No (0 pts) Mobility Assist Device Used No (0 pt) Altered Elimination No (0 pt) Score/Fall Risk Level 0 - 2 = Low Risk Oriented to surroundings, Maintained a safe environment, Hourly rounding (assess needs \\T\\ fall precautionary measures) done. 10:00 Abuse screen: Denies threats or abuse. Denies injuries from another. Nutritional nj1 screening: No deficits noted. Tuberculosis screening: No symptoms or risk factors identified. Assessment: 09:45 General: Appears in no apparent distress. uncomfortable, Behavior is calm, cooperative, nj1 appropriate for age. Neuro: Level of Consciousness is awake, alert, obeys commands, Oriented to person, place, time, situation. 09:45 Cardiovascular: Patient's skin is warm and dry. Rhythm is atrial fibrillation. nj1 Respiratory: Airway is patent Respiratory effort is even, unlabored. 09:45 Pain: Complains of pain in chest. nj1 10:34 Reassessment: Patient appears in no apparent distress at this time. Patient and/or nj1 family updated on plan of care and expected duration. Pain level reassessed. Patient is alert, oriented x 3, equal unlabored respirations, skin warm/dry/pink. Patient states feeling better. 11:39 Reassessment: Patient appears in no apparent distress at this time. Patient and/or nj1 family updated on plan of care and expected duration. Pain level reassessed. Patient is alert, oriented x 3, equal unlabored respirations, skin warm/dry/pink. 12:05 General: Appears uncomfortable, well groomed, well developed, well nourished, Behavior me1 is calm, cooperative, appropriate for age. Pain: Complains of pain in chest Pain does not radiate. Pain currently is 2 out of 10 on a pain scale. Quality of pain is described as tender, "feels bruised" Is continuous. Neuro: Level of Consciousness is awake, alert, obeys commands, Oriented to person, place, time, situation, Appropriate for age. Cardiovascular: Capillary refill < 3 seconds Patient's skin is warm and dry. Respiratory: Airway is patent Respiratory effort is even, unlabored, Respiratory pattern is regular, symmetrical. GI: No signs and/or symptoms were reported involving the gastrointestinal system. : No signs and/or symptoms were reported regarding the genitourinary system. EENT: No signs and/or symptoms were reported regarding the EENT system. Derm: Skin is intact, Skin is pink, warm \\T\\ dry. Musculoskeletal: No signs and/or symptoms reported regarding the musculoskeletal system. Vital Signs: 09:45 BP 135 / 97; Pulse 152; Resp 24; Pulse Ox 98% on R/A; Weight 113.4 kg; Height 5 ft. 6 iw in. ; 09:45 BP 135 / 97; Pulse 150; nj1 09:50 BP 111 / 89; Pulse 144; nj1 09:55 BP 116 / 79; Pulse 141; nj1 10:10 BP 121 / 100; Pulse 138; Resp 16; Pulse Ox 96% on R/A; nj1 10:35 BP 113 / 89; Pulse 138; Resp 22; Pulse Ox 98% on 2 lpm NC; nj1 10:53 BP 115 / 85; Pulse 138; Resp 12; Pulse Ox 99% on 2 lpm NC; nj1 11:39 BP 127 / 99; Pulse 139; Resp 24; Pulse Ox 98% on 2 lpm NC; nj1 11:50 BP 127 / 90; Pulse 137; nj1 12:05 BP 121 / 99; Pulse 138; nj1 12:30 BP 119 / 85; Pulse 132; Resp 17; Pulse Ox 95% on 2 lpm NC; me1 13:00 BP 116 / 95; Pulse 130; Resp 20; Pulse Ox 95% on 2 lpm NC; me1 13:15 BP 124 / 86; Pulse 127; Resp 14; Pulse Ox 96% on 2 lpm NC; me1 09:45 Body Mass Index 40.35 (113.40 kg, 167.64 cm) iw ED Course: 09:32 Patient arrived in ED. em1 09:32 Victorino Ureña MD is Attending Physician. rt 09:32 Arm band placed on Patient placed in an exam room, on a stretcher. ll1 09:44 Triage completed. ll1 09:45 Patient has correct armband on for positive identification. Bed in low position. Call nj light in reach. Side rails up X 1. Adult w/ patient. 09:46 Initial lab(s) drawn, by me, sent to lab. Inserted saline lock: 20 gauge in right iw antecubital area, using aseptic technique. Blood collected. 10:00 Brittani Hope, AURELIO is Primary Nurse. nj1 10:00 Provided Education on: call light, fall precautions. Warm blanket given. nj1 10:03 XRAY Chest (1 view) In Process Unspecified. EDMS 10:10 Oxygen administration via nasal cannula \\T\\ 2L/min. nj1 10:13 Notified ED physician of vital signs. nj1 12:05 Report given to Liana CAREY. nj1 12:17 Liana Wilkes, AURELIO is Primary Nurse. me1 12:31 Earnest Watkins MD is Hospitalizing Provider. rt 13:46 No provider procedures requiring assistance completed. Patient admitted, IV remains in me1 place. Administered Medications: 09:45 Drug: Metoprolol IVP 5 mg IVP every 5 minutes; Hold for SBP < 100 or HR < 60. x3 Route: nj1 IVP; Site: right antecubital; 09:50 Drug: Metoprolol IVP 5 mg IVP every 5 minutes; Hold for SBP < 100 or HR < 60. x3 Route: nj1 IVP; Site: right antecubital; 09:55 Drug: Metoprolol IVP 5 mg IVP every 5 minutes; Hold for SBP < 100 or HR < 60. x3 Route: nj1 IVP; Site: right antecubital; 13:46 Follow up: Response: No adverse reaction me1 10:15 Drug: Ondansetron IVP 4 mg IVP once; over 2 minutes Route: IVP; Site: right antecubital;cp4 13:46 Follow up: Response: No adverse reaction; Nausea is decreased me1 10:28 Drug: NS 0.9% IV 500 ml IV at bolus once Route: IV; Rate: bolus; Site: right nj1 antecubital; 13:45 Follow up: Response: No adverse reaction; IV Status: Completed infusion; IV Intake: me1 500ml 11:39 Drug: Metoprolol PO 50 mg PO once Route: PO; nj1 13:45 Follow up: Response: No adverse reaction me1 11:50 Drug: Diltiazem IV 5 mg/hr IV at calculated rate See Administration Instructions; nj1 (standard dilution 125 mg diltiazem mixed in 125 mL NS; final concentration 1mg/mL). Recommended max rate 15 mg/hr; Titrate 5 mg/hr as often as every 15 minutes to achieve goal (see titration policy); Goal parameter HR less than 100 bpm Route: IV; Rate: calculated rate; Site: right antecubital; 12:05 Follow up: Rate change 10 mg/hr nj1 13:46 Follow up: IV Status: Infusion continued upon admission me1 Medication: 13:47 VIS not applicable for this client. me1 Intake: 13:45 IV: 500ml; Total: 500ml. me1 Outcome: 12:32 Decision to Hospitalize by Provider. rt 13:46 Admitted to ICU accompanied by nurse, via stretcher, room -2, on monitor, with chart, me1 Report called to Naila Burnett RN 13:46 Condition: stable 13:46 Instructed on the need for admit, 14:03 Patient left the ED. ll1 Signatures: Dispatcher [employer] Bee Villa, RN Andreas Jones 1 Tawny Pool RN RN 1 Victorino Ureña MD MD rt Brittani Hope RN RN nj1 Liana Wilkes RN RN me1 Rosario Anderson cp4
--- NOTE | 2023-10-11 12:33 | EDPHYS ---
Physician Documentation [facility] Name: Antonella Hwang Age: 63 yrs Sex: Female : 1960 Arrival Date: 10/11/2023 Time: 09:31 Bed 15 Private MD: ED Physician Victorino Ureña HPI: 10/10 09:54 This 63 yrs old Female presents to ER via Wheelchair with complaints of chest pain. rt 09:54 Patient presents to the ED with chest pain, shortness of breath, nausea, dizziness rt starting at about 715. The patient reportedly has history of A-fib, has not been on her metoprolol for several months. Denies other acute complaints at this time, symptoms are moderate in severity, no other aggravating or alleviating factors.. Historical: - Allergies: 09:43 Hydrocodone-Acetaminophen; ll1 - PMHx: 09:43 Anxiety; CVA; GERD; High Cholesterol; SVT; ll1 - Immunization history:: Adult Immunizations up to date. - Infectious Disease History:: Denies. - Social history:: Smoking status: Patient/guardian denies using tobacco. - Family history:: not pertinent. ROS: 09:54 Constitutional: Negative for fever, chills, and weight loss, Neck: Negative for injury, rt pain, and swelling, MS/Extremity: Negative for injury and deformity, Skin: Negative for injury, rash, and discoloration, Neuro: Negative for headache, weakness, numbness, tingling, and seizure, Psych: Negative for depression, anxiety, suicide ideation, homicidal ideation, and hallucinations, 09:54 Cardiovascular: Positive for chest pain, Negative for edema, 09:54 Respiratory: Positive for shortness of breath, Negative for wheezing, 09:54 Abdomen/GI: Positive for nausea, Negative for abdominal pain, Exam: 09:54 Constitutional: This is a well developed, well nourished patient who is awake, alert, rt and in no acute distress. Head/Face: Normocephalic, atraumatic. Chest/axilla: Normal chest wall appearance and motion. Nontender with no deformity. No lesions are appreciated. Cardiovascular: Regular rate and rhythm with a normal S1 and S2. No gallops, murmurs, or rubs. Normal PMI, no JVD. No pulse deficits. Respiratory: Lungs have equal breath sounds bilaterally, clear to auscultation and percussion. No rales, rhonchi or wheezes noted. No increased work of breathing, no retractions or nasal flaring. Abdomen/GI: Soft, non-tender, with normal bowel sounds. No distension or tympany. No guarding or rebound. No evidence of tenderness throughout. Skin: Warm, dry with normal turgor. Normal color with no rashes, no lesions, and no evidence of cellulitis. MS/ Extremity: Pulses equal, no cyanosis. Neurovascular intact. Full, normal range of motion. Neuro: Awake and alert, GCS 15, oriented to person, place, time, and situation. Cranial nerves II-XII grossly intact. Motor strength 5/5 in all extremities. Sensory grossly intact. Cerebellar exam normal. Normal gait. Psych: Awake, alert, with orientation to person, place and time. Behavior, mood, and affect are within normal limits. 09:54 ECG was reviewed by the Attending Physician. Vital Signs: 09:45 BP 135 / 97; Pulse 152; Resp 24; Pulse Ox 98% on R/A; Weight 113.4 kg; Height 5 ft. 6 iw in. ; 09:45 BP 135 / 97; Pulse 150; nj1 09:50 BP 111 / 89; Pulse 144; nj1 09:55 BP 116 / 79; Pulse 141; nj1 10:10 BP 121 / 100; Pulse 138; Resp 16; Pulse Ox 96% on R/A; nj1 10:35 BP 113 / 89; Pulse 138; Resp 22; Pulse Ox 98% on 2 lpm NC; nj1 10:53 BP 115 / 85; Pulse 138; Resp 12; Pulse Ox 99% on 2 lpm NC; nj1 11:39 BP 127 / 99; Pulse 139; Resp 24; Pulse Ox 98% on 2 lpm NC; nj1 11:50 BP 127 / 90; Pulse 137; nj1 12:05 BP 121 / 99; Pulse 138; nj1 12:30 BP 119 / 85; Pulse 132; Resp 17; Pulse Ox 95% on 2 lpm NC; me1 13:00 BP 116 / 95; Pulse 130; Resp 20; Pulse Ox 95% on 2 lpm NC; me1 13:15 BP 124 / 86; Pulse 127; Resp 14; Pulse Ox 96% on 2 lpm NC; me1 09:45 Body Mass Index 40.35 (113.40 kg, 167.64 cm) iw MDM: 09:33 Patient medically screened. rt 13:35 Differential Diagnosis A-fib, a flutter, electrolyte disturbance. Data reviewed: vital rt signs, nurses notes, lab test result(s), EKG, radiologic studies. Consideration of Admission/Observation Patient was admitted/placed on observation. Management of patient was discussed with the following: Staff Anesthetist: Discussed with cardiology on-call, recommends diltiazem drip, will evaluate patient in the ED.. I considered the following discharge prescriptions or medication management in the emergency department Medications were administered in the Emergency Department. See MAR. Independent interpretation of the following test(s) in the Emergency Department X-Ray: My interpretation is No consolidation seen on interpretation of x-ray images. Test considered but Not performed: CT: Low suspicion for PE, CT angiogram not indicated. Care significantly affected by the following chronic conditions: Atrial fibrillation. Counseling: I had a detailed discussion with the patient and/or guardian regarding the historical points, exam findings, and any diagnostic results supporting the discharge/admit diagnosis, lab results, radiology results, the need for further work-up and treatment in the hospital. Response to treatment: the patient's symptoms have mildly improved after treatment. 10/10 09:39 Order name: Basic Metabolic Panel; Complete Time: 10:19 rt 10/10 09:39 Order name: CBC with Diff; Complete Time: 10:16 rt 10/10 09:39 Order name: LFT's; Complete Time: 10:19 rt 10/10 09:39 Order name: Magnesium; Complete Time: 10:19 rt 10/10 09:39 Order name: NT PRO-BNP; Complete Time: 10:19 rt 10/10 09:39 Order name: Troponin HS; Complete Time: 10:19 rt 10/10 09:39 Order name: TSH; Complete Time: 10:19 rt 10/10 09:39 Order name: XRAY Chest (1 view); Complete Time: 10:16 rt 10/10 11:31 Order name: Echo w/ Doppler nj1 10/10 09:39 Order name: Cardiac monitoring; Complete Time: 09:46 rt 10/10 09:39 Order name: EKG - Nurse/Tech; Complete Time: 09:46 rt 10/10 09:39 Order name: IV Saline Lock; Complete Time: 09:46 rt 10/10 09:39 Order name: Labs collected and sent; Complete Time: :46 rt 10/10 09:39 Order name: O2 Per Protocol; Complete Time: : rt 10/10 09:39 Order name: O2 Sat Monitoring; Complete Time: :46 rt EC:54 Rate is 153 beats/min. Rhythm is regular, A-fib versus flutter with rapid rate with No rt ectopy, Rate related ST and T wave changes. QRS interval is normal. QT interval is normal. No Q waves. Administered Medications: 09:45 Drug: Metoprolol IVP 5 mg IVP every 5 minutes; Hold for SBP < 100 or HR < 60. x3 Route: nj1 IVP; Site: right antecubital; 09:50 Drug: Metoprolol IVP 5 mg IVP every 5 minutes; Hold for SBP < 100 or HR < 60. x3 Route: nj1 IVP; Site: right antecubital; 09:55 Drug: Metoprolol IVP 5 mg IVP every 5 minutes; Hold for SBP < 100 or HR < 60. x3 Route: nj1 IVP; Site: right antecubital; 13:46 Follow up: Response: No adverse reaction me1 10:15 Drug: Ondansetron IVP 4 mg IVP once; over 2 minutes Route: IVP; Site: right antecubital;cp4 13:46 Follow up: Response: No adverse reaction; Nausea is decreased me1 10:28 Drug: NS 0.9% IV 500 ml IV at bolus once Route: IV; Rate: bolus; Site: right nj1 antecubital; 13:45 Follow up: Response: No adverse reaction; IV Status: Completed infusion; IV Intake: me1 500ml 11:39 Drug: Metoprolol PO 50 mg PO once Route: PO; nj1 13:45 Follow up: Response: No adverse reaction me1 11:50 Drug: Diltiazem IV 5 mg/hr IV at calculated rate See Administration Instructions; nj1 (standard dilution 125 mg diltiazem mixed in 125 mL NS; final concentration 1mg/mL). Recommended max rate 15 mg/hr; Titrate 5 mg/hr as often as every 15 minutes to achieve goal (see titration policy); Goal parameter HR less than 100 bpm Route: IV; Rate: calculated rate; Site: right antecubital; 12:05 Follow up: Rate change 10 mg/hr nj1 13:46 Follow up: IV Status: Infusion continued upon admission me1 Disposition Summary: 10/11/23 12:32 Hospitalization Ordered Notes: Hospitalization Status: Observation rt Provider: Earnest Watkins rt Condition: Fair rt Problem: new rt Symptoms: have improved rt Bed/Room Type: Standard rt Location: Intensive Care Unit(10/11/23 12:36) la1 Room Assignment: 2-(10/11/23 13:09) em1 Diagnosis - Atrial fibrillation with rapid ventricular rate rt Forms: - Medication Reconciliation Form rt - SBAR form rt - Leadership Thank You Letter rt Critical care time excluding procedures: 13:43 Critical care time: Bedside Care: 30 minutes, Consultation: 5 minutes. Total time: 35 rt minutes Signatures: Dispatcher [employer] EDAndreas Acuna em1 Greyson Quintana, KARDEX CLERK-C KARDEX CLERK-Briana1 Tawny Pool RN RN ll1 Victorino Ureña MD MD rt Brittani Hope RN RN nj1 Rosario Anderson cp4 Liana Wilkes RN me1 Corrections: (The following items were deleted from the chart) 09:40 09:40 BASIC METABOLIC PANEL+C.LAB.BRZ ordered. EDMS EDMS 09:40 09:40 CBC+H.LAB.BRZ ordered. EDMS EDMS 09:40 09:40 HEPATIC FUNCTION+C.LAB.BRZ ordered. EDMS EDMS 09:40 09:40 MAGNESIUM+C.LAB.BRZ ordered. EDMS EDMS 09:40 09:40 PROBNP+C.LAB.BRZ ordered. EDMS EDMS 09:40 09:40 Troponin High Sensitivity+C.LAB.BRZ ordered. EDMS EDMS 09:40 09:40 THYROID STIMULAT HORMONE+C.LAB.BRZ ordered. EDMS EDMS 09:40 09:40 Chest Single View+RAD.RAD.BRZ ordered. EDMS EDMS 12:36 12:32 Telemetry/MedSurg (observation) rt la1 12:36 12:32 rt la1 13:09 12:36 la1 em1
[2023-10-11] MEDS ORDERED: ACETAMINOPHEN 500 MG TAB PO PRN (13:44)
[2023-10-11 15:00] VITALS: BMI 43.0
--- NOTE | 2023-10-11 15:01 | P.HP ---
Certification for Inpatient Patient admitted to: Observation With expected LOS: <2 Midnights Patient will require the following post-hospital care: None Practitioner: I am a practitioner with admitting privileges, knowledge of patient current condition, hospital course, and medical plan of care. Services: Services provided to patient in accordance with Admission requirements found in Title 42 Section 412.3 of the Code of Federal Regulations Patient History Date of Service: 10/11/23 Reason for admission: New onset A-fib with RVR History of Present Illness: 63-year-old female with history of COPD on chronic home O2 at 4 L, previous tachyarrhythmiaslikely SVT, hypertension, hyperlipidemia presents to the emergency department with chief complaint of palpitations, nausea, diaphoresis. She reports she woke up and noted her heart rate was very elevated around 180. She was previously on metoprolol tartrate 50 mg p.o. twice daily but has not been taking now for at least a few months. She reports that she has similar to this with elevated heart rate for 15 to 30 minutes typically a few times per month, more often when she is not taking her metoprolol. Upon arrival to the emergency department patient was evaluated, EKG was performed which shows suspected atrial fibrillation versus atrial flutter with a rate between 130 and 140. Blood pressure around 130 systolic, labs are significant for a glucose of 150 TSH normal at 3, magnesium and potassium also normal. Patient was started on Cardizem drip in ED, seen by cardiology in the emergency department who recommends continuation of metoprolol 50 mg twice daily and Cardizem drip for now, patient be admitted to the ICU given persistent tachyarrhythmia. Allergies hydrocodone Allergy (Severe, Verified 11/24/16 22:02) Itching codeine Allergy (Verified 10/11/23 14:09) Itching Home Medications: Metoprolol Succinate [Toprol Xl*] 50 mg PO BID 05/09/19 Albuterol Inhaler [Ventolin Inhaler*] 2 puff IH Q6H PRN #1 hfa.aer.[id number] 05/10/19 Albuterol Sulfate [Proair Digihaler] 2 puff IH Q4H PRN 10/11/23 Aspirin [Aspirin EC 81 MG] 81 mg PO DAILY 10/11/23 Atorvastatin Calcium [Lipitor] 40 mg PO DAILY 10/11/23 Budesonide/Formoterol Fumarate [Symbicort 160-4.5 Mcg Inhaler] 2 puff IH BID 10/11/23 Metformin ER [Glucophage ER*] 500 mg PO BID 10/11/23 - Past Medical/Surgical History Diabetic: No -: Anxiety -: CVA-2004 -: GERD -: SVT -: HLD -: COPD on home O2 -: CS Psychosocial/ Personal History: Lives at home with family - Family History Father -: Cancer Notes: Liver cancer Mother -: Diabetes Notes: none Brother -: Heart disease, Cancer Notes: Lung cancer Sister -: Cancer Notes: uterine cancer and breast cancer - Social History Alcohol use: Yes CD- Drugs: No Caffeine use: No Place of Residence: Home Review of Systems 10-point ROS is otherwise unremarkable General: Weakness Cardiovascular: Palpitations Physical Examination - Vital Signs Blood Pressure: 124/86 Pulse: 127 Respirations: 14 - Physical Exam General: Alert, In no apparent distress, Oriented x3 HEENT: Atraumatic, PERRLA, Mucous membr. moist/pink Neck: Supple, 2+ carotid pulse no bruit, No LAD Respiratory: Diminished Cardiovascular: Normal S1 S2, Irregular heart rate/rhythm (Irregular rhythm, rate 130s to 140s) Gastrointestinal: Normal bowel sounds, No tenderness Musculoskeletal: No tenderness Integumentary: No rashes Neurological: Normal speech, Normal strength at 5/5 x4 extr, Normal tone, Normal affect - Studies Laboratory Data (last 24 hrs) 10/11/23 10/11/23 09:43 09:43 WBC 7.20 Hgb 13.6 Hct 40.1 Plt Count 242 Sodium 140 Potassium 3.6 BUN 15 Creatinine 0.92 Glucose 150 H Magnesium 1.9 Total Bilirubin 0.4 AST 19 ALT 24 Alkaline Phosphatase 66 Assessment and Plan - Plan Assessment: New onset atrial fibrillation with rapid ventricular response History of SVT versus A-fib? COPD on chronic home O24 L Diabetes mellitus type [id number] History of CVA Hyperlipidemia Plan: New onset atrial fibrillation with rapid ventricular response History of SVT versus A-fib? [id number] 2 score 4-5 depending on history of hypertension which warrants anticoagulation Currently on Cardizem drip, metoprolol tartrate 50 mg mouth twice daily as recommended by cardiology Patient was previously on metoprolol tartrate 50 mg by mouth twice daily but has not been taking it recently Reports she has episodes similar to this with palpitations attributed to SVT a few times per month but this episode the rate is higher and it lasted longer Echocardiogram ordered, cardiology following Will also trend troponins Monitor in ICU given rapid rate, need for titration of Cardizem COPD on chronic home O24 L Continue supplemental oxygen as needed Continue inhalers once medications verified Diabetes mellitus type [id number] ACHS Accu-Chek, sliding scale insulin History of CVA Hyperlipidemia Continue home medications once verified DVT PPX: Therapeutic Lovenox Code status: Full Discharge Plan: Home Plan to discharge in: 24 Hours - Advance Directives Does patient have a Living Will: No Does patient have a Durable POA for Healthcare: No - Code Status/Comfort Care Code Status Assessed: Yes Critical Care: No Time Spent Managing Pts Care (In Minutes): 70
[2023-10-11] MEDS: INSULIN REGULAR (HUMAN) 100 UNIT/ML SQ SCH (16:30)
--- NOTE | 2023-10-11 16:40 | P.CNS ---
Date of Consult: 10/11/23 Chief Complaint: New onset A-fib with RVR History of Present Illness: Patient with PMH of SVT, COPD on oxygen presented with palpitations, nausea and diaphoresis, she was diagnosed with SVT in the past and also she was given adenosine at one time to break it, she was on metoprolol but she has not been taking it since august, denies any associated cardiac symptoms. Allergies hydrocodone Allergy (Severe, Verified 11/24/16 22:02) Itching codeine Allergy (Verified 10/11/23 14:09) Itching Home Medications: Metoprolol Succinate [Toprol Xl*] 50 mg PO BID 05/09/19 Albuterol Inhaler [Ventolin Inhaler*] 2 puff IH Q6H PRN #1 hfa.aer.ad 05/10/19 Albuterol Sulfate [Proair Digihaler] 2 puff IH Q4H PRN 10/11/23 Aspirin [Aspirin EC 81 MG] 81 mg PO DAILY 10/11/23 Atorvastatin Calcium [Lipitor] 40 mg PO DAILY 10/11/23 Budesonide/Formoterol Fumarate [Symbicort 160-4.5 Mcg Inhaler] 2 puff IH BID 10/11/23 Metformin ER [Glucophage ER*] 500 mg PO BID 10/11/23 - Past Medical/Surgical History Diabetic: No -: Anxiety -: CVA-2004 -: GERD -: SVT -: HLD -: COPD on home O2 -: DM -: CS -: Tubal Ligation Psychosocial/ Personal History: Lives at home with family - Family History Father Medical History: Cancer Notes: Liver cancer Mother Medical History: Diabetes Notes: none Brother Medical History: Heart disease, Cancer Notes: Lung cancer Sister Medical History: Cancer Notes: uterine cancer and breast cancer - Social History Smoking Status: Current every day smoker Alcohol use: Yes CD- Drugs: No Caffeine use: No Place of Residence: Home Review of Systems 10-point ROS is otherwise unremarkable Physical Examination Temp Pulse Resp BP Pulse Ox 97.0 F 60 16 125/65 98 10/11/23 16:00 10/11/23 16:00 10/11/23 16:00 10/11/23 16:00 10/11/23 16:00 General: Alert, Oriented x3 HEENT: Atraumatic Neck: Supple Respiratory: Clear to auscultation bilaterally Cardiovascular: No edema, Irregular heart rate/rhythm Gastrointestinal: Normal bowel sounds Laboratory Data (last 24 hrs) 10/11/23 10/11/23 09:43 09:43 WBC 7.20 Hgb 13.6 Hct 40.1 Plt Count 242 Sodium 140 Potassium 3.6 BUN 15 Creatinine 0.92 Glucose 150 H Magnesium 1.9 Total Bilirubin 0.4 AST 19 ALT 24 Alkaline Phosphatase 66 - Problems (1) Chest pain Current Visit: No Status: Acute Plan: get cardiac enzymes for 3 sets 8 hours apart. get Echo (2) SVT (supraventricular tachycardia) Current Visit: No Status: Acute Plan: patient responded well to IV metoprolol, continue Diltazem drip resume Toprol XL 50 mg po BID. (3) Shortness of breath Current Visit: No Status: Acute Plan: most likely secondary to SVT. get echo.
--- NOTE | 2023-10-11 19:49 | CON ---
Date of Consultation: 10/11/2023 Reason For Consultation: Atrial fibrillation with rapid ventricular response. History Of Present Illness: A 63-year-old female with past medical history of COPD, on home oxygen, hypertension, dyslipidemia, history of SVT, presented with palpitation, nausea, and diaphoresis, foun d to be in atrial fibrillation with rapid ventricular response at 180, and she was started on Cardize m drip and converted to sinus rhythm, has been in sinus in ICU, has no symptoms. Past Medical History: As outlined above in the HPI. Medications: Refer reconciliation sheet for detailed list. Allergies: HYDROCODONE AND CODEINE. Family History: No premature coronary artery disease or cancer. Social History: Does not smoke or drink. Does not use any drugs. Review of Systems: All systems reviewed and they were negative except as mentioned in the HPI. Physical Examination: Vital Signs: Reviewed. Head and Neck: Pupils are equal, reactive to light. Intact eye movements. No JVD. No cervical lym phadenopathy. Neck is supple. Thyroid is not enlarged. Lungs: Clear to auscultation bilaterally. No rhonchi, wheezing, or crackles. No accessory muscle u se. Heart: Regular rate and rhythm. No extra sounds. Abdomen: Soft, nontender. Bowel sounds positive. No organomegaly. No masses or hernia. No rigidi ty or rebound. Extremities: No edema, clubbing, cyanosis. Intact pulses. Skin: No rash or nodule. Neurologic: Alert, awake, oriented x3. No acute focal deficits appreciated. Lymph nodes: No cervical or axillary lymphadenopathy. Investigations: BUN is 15, creatinine 0.92. Cardiac enzymes x4 were negative. TSH is normal and he moglobin is 10.6. Assessment/recommendation: 1.Atrial fibrillation with rapid ventricular response. Recommend to discontinue IV Cardizem and put her on an oral Cardizem CD 120 mg daily. Continue metoprolol and adjust the Cardizem as needed for rate control and this patient's CHADVASc score is elevated. I recommend Eliquis 5 mg twice a day. 2.COPD, stable. Continue oxygen therapy. 3.Dyslipidemia. Recommend Lipitor 40 mg q.h.s. Cardiology will sign off and she will follow up wit h her primary emotional support teacher. SR/MODL Voice ID: [id number] Report ID: [id number]
[2023-10-11] MEDS: DILTIAZEM HCL 120 MG SR CAP PO SCH (20:42)
[2023-10-11] MEDS: METOPROLOL TAR 50 MG TAB PO SCH (20:43)
[2023-10-11] MEDS: Enoxaparin 120 MG/0.8 ML SYR SQ SCH (20:43)
[2023-10-12 05:07] LABS: Absolute Basophils 0.1 K/uL (0-0.5); Absolute Eosinophils 0.2 K/uL (0-0.5); Absolute Lymphocytes (CBC) 2.7 K/uL (0.7-4.9); Absolute Monocytes 0.5 K/uL (0.1-1.3); Basophils % 0.9 % (0-1.3); Eosinophils % 2.6 % (0-4.4); Hematocrit 37.4 % (36.0-45.0); Hemoglobin 12.6 g/dL (12.0-15.0); Lymphocytes % 42.5 % (15.3-44.8); MCH 30.7 pg (27.0-35.0); MCHC 33.6 g/dL (32.0-36.0); MCV 91.4 fL (80-100); MPV 8.6 fL (7.6-11.3); Monocytes % 7.4 % (3.3-12.3); Neutrophils % 46.6 % (41.7-73.7); Nucleated Red Blood Cells % 0.2 % (0-0); Platelets 220 thou/uL (152-406); RBC Red Blood Cell Count 4.09 M/uL (3.86-4.86); Red Cell Distribution Width 14.4 % (12.1-15.2)
[2023-10-12 05:44] LABS: Anion Gap 5.8 mEq/L (5.0-15.0); Magnesium 2.1 mg/dL (1.6-2.4); Potassium 3.8 mEq/L (3.5-5.1); Thyroid Stimulating Hormone 2.06 uIU/mL (0.358-3.740)
[2023-10-12 13:25] VITALS: TEMP 97.2; O2SAT 96
--- NOTE | 2023-10-12 14:20 | ECHO ---
HEIGHT: 5 ft 7 in WEIGHT: 275 lb 0 oz DATE OF STUDY: 10/12/[address]: Victorino Ureña 2-DIMENSIONAL: YES M.MODE: YES DOPPLER: YES COLOR FLOW: YES TDS: PORTABLE: YES DEFINITY: BUBBLE STUDY: DIAGNOSIS: RAPID HEART RATE CARDIAC HISTORY: CATHERIZATION: SURGERY: PROSTHETIC VALVE: PACEMAKER: MEASUREMENTS (cm) DIASTOLIC (NORMALS) SYSTOLIC (NORMALS) IVSd 1.0 (0.6-1.2) LA Diam 3.0 (1.9-4.0) LVEF 58% LVIDd 4.7 (3.5-5.7) LVIDs 3.3 (2.0-3.5) %FS 31% LVPWd 1.1 (0.6-1.2) Ao Diam 2.6 (2.0-3.7) 2 DIMENSIONAL ASSESSMENT: RIGHT ATRIUM: NORMAL LEFT ATRIUM: NORMAL RIGHT VENTRICLE: NORMAL LEFT VENTRICLE: NORMAL TRICUSPID VALVE: NORMAL MITRAL VALVE: NORMAL PULMONIC VALVE: NORMAL AORTIC VALVE: NORMAL PERICARDIAL EFFUSION: NONE AORTIC ROOT: NORMAL LEFT VENTRICULAR WALL MOTION: NORMAL DOPPLER/COLOR FLOW: NORMAL COMMENTS: 1. NORMAL LEFT VENTRICULAR SYSTOLIC FUCNTION, EJECTION FRACTION 55-60%, NORMAL WALL MOTION 2. NORMAL DIASTOLIC FUCNTION 3. DILATED INFERIOR VENA CAVA (RIGHT ATRIAL PRESSURE 10-15 mmHg) TECHNOLOGIST: MIRIAN VILLALOBOS
[2023-10-12 16:57] VITALS: BP 123/65
--- NOTE | 2023-10-12 17:04 | P.PN ---
Subjective Date of Service: 10/12/23 Chief Complaint: New onset A-fib with RVR Subjective: No new changes Review of Systems 10-point ROS is otherwise unremarkable Physical Examination - Vital Signs Temperature: 97.2 F Blood Pressure: 123/65 Pulse: 68 Respirations: 16 Pulse Ox (%): 98 - Physical Exam General: Alert, Oriented x3 HEENT: Atraumatic Neck: Supple Respiratory: Clear to auscultation bilaterally Cardiovascular: No edema, Normal S1 S2 Gastrointestinal: Normal bowel sounds Assessment And Plan - Current Problems (Diagnosis) (1) Chest pain Current Visit: No Status: Acute Plan: Echo is normal, most likely was secondary to SVT, feels better. may benefit from outpatient stress test. (2) SVT (supraventricular tachycardia) Current Visit: No Status: Acute Plan: patient responded well to IV metoprolol, Continue Toprol XL 50 mg po BID. (3) Shortness of breath Current Visit: No Status: Acute Plan: most likely secondary to SVT. echo is normal Continue Toprol.
--- NOTE | 2023-10-13 06:58 | P.DS ---
Admission Date: 10/11/23 Discharge Date: 10/13/23 Disposition: ROUTINE DISCHARGE Discharge Condition: GOOD Reason for Admission: New onset A-fib with RVR Consultations: Cardiology - Dr. José / Dr. Collado Brief History of Present Illness: 63yo F, PMH: COPD on chronic home O2 at 4 L, previous tachyarrhythmiaslikely SVT, hypertension, hyperlipidemia Patient presents to the emergency department with chief complaint of palpitations, nausea, diaphoresis. She reports she woke up and noted her heart rate was very elevated around 180. She was previously on metoprolol tartrate 50 mg p.o. twice daily but has not been taking now for at least a few months. She reports that she has similar to this with elevated heart rate for 15 to 30 minutes typically a few times per month, more often when she is not taking her metoprolol. Upon arrival to the emergency department patient was evaluated, EKG was performed which shows suspected atrial fibrillation versus atrial flutter with a rate between 130 and 140. Blood pressure around 130 systolic, labs are significant for a glucose of 150 TSH normal at 3, magnesium and potassium also normal. Patient was started on Cardizem drip in ED, seen by cardiology in the emergency department who recommends continuation of metoprolol 50 mg twice daily and Cardizem drip for now, patient be admitted to the ICU given persistent tachyarrhythmia. Hospital Course: Assessment: Chest pain / SVT COPD on chronic home O24 L Diabetes mellitus type [id number] History of CVA Hyperlipidemia Patient presented with palpitations, nausea, and diaphoresis, and noted to be in SVT in the 160s. She had improvement after starting cardizem drip and her home metoprolol dose. She remained in normal sinus rhythm overnight and the following day. Heart rate ranged from 60s-70s, down to high 40s while sleeping, and blood pressure was in the low 100-110s. Discussed with Dr. Collado, and patient will be discharged to resume her metoprolol succinate 50mg twice daily. Echocardiogram with normal systolic and diastolic function. Patient reported running out of the medication in the last few weeks, so a prescription was sent to her pharmacy, as well as prescriptions for her statin and inhalers. Follow up: PCP within 1 week Cardiology in ~1-2 weeks Physical Exam: GEN: Alert, oriented, NAD HEENT: Normal conjunctiva, sclera anicteric CV: Regular rate and rhythm, no edema Pulm: Nonlabored respirations on room air, clear bilaterally ABD: Soft, nontender, nondistended Neuro: Normal speech, normal affect Vital Signs/Physical Exam: Temp Pulse Resp BP Pulse Ox 97.2 F 68 16 123/65 98 10/12/23 17:04 10/12/23 17:04 10/12/23 17:04 10/12/23 17:04 10/12/23 17:04 Laboratory Data at Discharge: WBC 6.40 thou/uL (4.3-10.9) 10/12/23 04:41 Hgb 12.6 g/dL (12.0-15.0) 10/12/23 04:41 Hct 37.4 % (36.0-45.0) 10/12/23 04:41 Plt Count 220 thou/uL (152-406) 10/12/23 04:41 Sodium 138 mEq/L (136-145) 10/12/23 04:41 Potassium 3.8 mEq/L (3.5-5.1) 10/12/23 04:41 BUN 11 mg/dL (7-18) 10/12/23 04:41 Creatinine 0.83 mg/dL (0.55-1.02) 10/12/23 04:41 Glucose 104 mg/dL (74-106) 10/12/23 04:41 Magnesium 2.1 mg/dL (1.6-2.4) 10/12/23 04:41 Total Bilirubin 0.4 mg/dL (0.2-1.0) 10/11/23 09:43 AST 19 U/L (15-37) 10/11/23 09:43 ALT 24 U/L (13-56) 10/11/23 09:43 Alkaline Phosphatase 66 U/L (45-117) 10/11/23 09:43 Triglycerides 196 mg/dL (<150) H 10/12/23 04:41 Cholesterol 217 mg/dL (<200) H 10/12/23 04:41 HDL Cholesterol 42 mg/dL (40-60) 10/12/23 04:41 Cholesterol/HDL Ratio 5.17 10/12/23 04:41 Home Medications: Albuterol Inhaler [Ventolin Inhaler*] 2 puff IH Q6H PRN #1 hfa.aer.ad 05/10/19 Aspirin [Aspirin EC 81 MG] 81 mg PO DAILY 10/11/23 Metformin ER [Glucophage ER*] 500 mg PO BID 10/11/23 Albuterol Sulfate [Proair Digihaler] 2 puff IH Q4H PRN 30 Days #1 aer 10/12/23 Atorvastatin Calcium [Lipitor] 40 mg PO DAILY 30 Days #30 tab 10/12/23 Budesonide/Formoterol Fumarate [Symbicort 160-4.5 Mcg Inhaler] 2 puff IH BID 30 Days #1 inh 10/12/23 Metoprolol Succinate [Toprol Xl] 50 mg PO BID 30 Days #60 tab 10/12/23 New Medications: Atorvastatin Calcium [Lipitor] 40 mg PO DAILY 30 Days #30 tab Albuterol Sulfate [Proair Digihaler] 2 puff IH Q4H PRN 30 Days #1 aer PRN Reason: Shortness Of Breath Budesonide/Formoterol Fumarate [Symbicort 160-4.5 Mcg Inhaler] 2 puff IH BID 30 Days #1 inh Metoprolol Succinate [Toprol Xl] 50 mg PO BID 30 Days #60 tab Physician Discharge Instructions: PROBLEM: Irregular Heart Rhtyhm GOAL: Clear understanding of disease process INSTRUCTIONS:Patient presented with palpitations, nausea, and diaphoresis, and noted to be in SVT in the 160s. She had improvement after starting cardizem drip and her home metoprolol dose. She remained in normal sinus rhythm overnight and the following day. Heart rate ranged from 60s-70s, down to high 40s while sleeping, and blood pressure was in the low 100-110s. Discussed with Dr. Collado, and patient will be discharged to resume her metoprolol succinate 50mg twice daily. Echocardiogram with normal systolic and diastolic function. Patient reported running out of the medication in the last few weeks, so a prescription was sent to her pharmacy, as well as prescriptions for her statin and inhalers. Follow up: PCP within 1 week Cardiology in ~1-2 weeks Diet: ADA Activity: As tolerated DME DME: Date Ordered: Name of Company: [employer] Services Needed: None Name of Company: Date or Referral: IMMUNIZATION Influenza Vaccine Indicated: Influenza Vaccine Given: Date Given: Pneumonia Vaccine Indicated: No Pneumonia Vaccine Given: Date Given: Follow up with a Sales Consulting Director of your choice: DAVID JOSÉ MD [address] [facility], [address] [place], [place] [address] Follow up with an Internal Medicine Physician of your choice: JUNE WATSON MD [address] [facility], [place] [address] RAY PALOMARES MD [address] [place], [place] [address] SARAH LIVINGSTON MD [address] [facility] [address] [place], [place] [address] MONICA ACHARYA MD [address] [place], [place] [id number] Followup: NONE,NONE [Primary Care Provider] - Time spent managing pt's care (in minutes): 45
--- NOTE | 2023-10-15 13:05 | EKG ---
Test Date: 2023-10-12 Test Time: 08:35:26 Administrative Support Assoc: RNNT MEASUREMENT RESULTS: Intervals: Rate: 72 MN: 138 QRSD: 86 QT: 402 QTc: 440 [place]: P: 46 MN: 138 QRS: 43 T: 33 INTERPRETIVE STATEMENTS: Normal sinus rhythm Normal ECG Compared to ECG 10/11/2023 09:42:11 Supraventricular tachycardia no longer present ST (T wave) deviation no longer present Electronically Signed On 10-15-23 12:57:58 CDT by Jan Joseph
--- NOTE | 2023-10-15 13:07 | EKG ---
Test Date: 2023-10-12 Test Time: 04:15:22 Director Of Strategy & Mobile: ZAIN MEASUREMENT RESULTS: Intervals: Rate: 93 ID: [id number] QRSD: 122 QT: 404 QTc: 502 [place]: P: 54 ID: [id number] QRS: 85 T: -26 INTERPRETIVE STATEMENTS: Normal sinus rhythm Right bundle branch block T wave abnormality, consider inferior ischemia Abnormal ECG Compared to ECG 10/11/2023 09:42:11 Right bundle-branch block now present T-wave abnormality now present Possible ischemia now present Supraventricular tachycardia no longer present ST (T wave) deviation no longer present Electronically Signed On 10-15-23 12:58:32 CDT by Jan Joseph
--- NOTE | 2023-10-15 13:07 | EKG ---
Test Date: 2023-10-11 Test Time: 23:14:59 Customs Investigator: ZAIN MEASUREMENT RESULTS: Intervals: Rate: 95 [place]: 164 QRSD: 126 QT: 386 QTc: 485 [place]: P: 38 [place]: 164 QRS: 92 T: -34 INTERPRETIVE STATEMENTS: Normal sinus rhythm Right bundle branch block Cannot rule out Anterior infarct, age undetermined Abnormal ECG Compared to ECG 10/11/2023 09:42:11 Right bundle-branch block now present Myocardial infarct finding now present Supraventricular tachycardia no longer present ST (T wave) deviation no longer present Electronically Signed On 10-15-23 12:58:42 CDT by Jan Joseph
--- NOTE | 2023-10-15 13:07 | EKG ---
Test Date: 2023-10-12 Test Time: 03:26:22 Cue Selector: ZAIN MEASUREMENT RESULTS: Intervals: Rate: 86 [place]: 168 QRSD: 126 QT: 408 QTc: 488 [place]: P: 46 ND: 168 QRS: 89 T: -21 INTERPRETIVE STATEMENTS: Normal sinus rhythm Right bundle branch block Cannot rule out Anteroseptal infarct, age undetermined Abnormal ECG Compared to ECG 10/11/2023 09:42:11 Right bundle-branch block now present Myocardial infarct finding now present Supraventricular tachycardia no longer present ST (T wave) deviation no longer present Electronically Signed On 10-15-23 12:58:33 CDT by Jan Joseph
--- NOTE | 2023-10-15 13:08 | EKG ---
Test Date: 2023-10-11 Test Time: 20:02:26 Chief Sales Officer: ZAIN MEASUREMENT RESULTS: Intervals: Rate: 100 NE: 166 QRSD: 128 QT: 400 QTc: 516 [place]: P: 43 NE: 166 QRS: 89 T: -32 INTERPRETIVE STATEMENTS: Normal sinus rhythm Right bundle branch block Cannot rule out Inferior infarct, age undetermined Abnormal ECG Compared to ECG 10/11/2023 09:42:11 Right bundle-branch block now present Myocardial infarct finding now present Supraventricular tachycardia no longer present ST (T wave) deviation no longer present Electronically Signed On 10-15-23 12:58:53 CDT by Jan Joseph
--- NOTE | 2023-10-15 13:10 | EKG ---
Test Date: 2023-10-11 Test Time: 14:38:35 Associate Material Handler: ZAIN MEASUREMENT RESULTS: Intervals: Rate: 61 NM: 166 QRSD: 78 QT: 416 QTc: 418 [place]: P: 55 NM: 166 QRS: 31 T: 36 INTERPRETIVE STATEMENTS: Normal sinus rhythm Normal ECG Compared to ECG 10/11/2023 09:42:11 Supraventricular tachycardia no longer present ST (T wave) deviation no longer present Electronically Signed On 10-15-23 12:59:21 CDT by Jan Joseph
--- NOTE | 2023-10-15 13:12 | EKG ---
Test Date: 2023-10-11 Test Time: 09:38:35 Application Development Intern: DANIELITO MEASUREMENT RESULTS: Intervals: Rate: 154 [place]: QRSD: 76 QT: 292 QTc: 467 [place]: P: [place]: QRS: 12 T: 46 INTERPRETIVE STATEMENTS: Supraventricular tachycardia Low voltage QRS Nonspecific ST abnormality Abnormal ECG Compared to ECG 05/08/2019 23:56:38 Low QRS voltage now present Sinus rhythm no longer present ST (T wave) deviation still present Electronically Signed On 10-15-23 13:00:19 CDT by Jan Joseph
--- NOTE | 2023-10-15 13:12 | EKG ---
Test Date: 2023-10-11 Test Time: 09:42:11 Licensed Dispensing Optician: DANIELITO MEASUREMENT RESULTS: Intervals: Rate: 153 [place]: QRSD: 76 QT: 292 QTc: 466 [place]: P: [place]: QRS: 5 T: 81 INTERPRETIVE STATEMENTS: Supraventricular tachycardia Low voltage QRS Nonspecific ST and T wave abnormality Abnormal ECG Compared to ECG 10/11/2023 09:38:35 No significant changes Electronically Signed On 10-15-23 12:59:50 CDT by Jan Joseph
== END 2023-10-12 17:45 | disposition home or self-care (01) ==
LOC: ER 09:31 → ERHOLD 12:42 → 3RD-ICU 14:23
PROVIDERS: ADMIT Hospitalist; ATTEND Hospitalist
DX: I47.10 Supraventricular tachycardia, unspecified (principal); I48.20 Chronic atrial fibrillation, unspecified; R07.9 Chest pain, unspecified; J44.9 Chronic obstructive pulmonary disease, unspecified; R06.02 Shortness of breath; E11.9 Type 2 diabetes mellitus without complications; E78.5 Hyperlipidemia, unspecified; F17.210 Nicotine dependence, cigarettes, uncomplicated; Z86.73 Personal history of transient ischemic attack (TIA), and cerebral infarction without residual deficits; Z88.5 Allergy status to narcotic agent; Z99.81 Dependence on supplemental oxygen
CPT/HCPCS: 93005 ×2; 93306; 85025 ×2; 80048 ×2; 36415; 83735 ×2; 80061; 82947 ×3; 80076; 84443 ×2; 83036; 84484 ×3; 84439; 83880; 71045; J1650 ×2; J2405; J7050; J7030; G0378 ×3